=== PATIENT | male | born 1950 | race Caucasian/White ===

== ENCOUNTER → 2016-05-13 | Outpatient (CLI) | payer OTHER | LOC: M SMT 10:33 | PROVIDERS: ATTEND Nurse Practitioner Women's Health | DX: Z12.5 Encounter for screening for malignant neoplasm of prostate (principal) | CPT/HCPCS: 36415; G0103 ==

== ENCOUNTER 2016-12-24 08:28 | Outpatient (CLI) | payer MEDICARE, OTHER ==
[~2016-12-24] VITALS: Ht 172.7 cm; Wt 81.6 kg
[~2016-12-24 08:28] MED LIST: ATOR80TA59 PO; GABA-282 PO; JANU100T PO; JARD1TAB3 PO; LOSA100T36 PO; METF10004 PO; PRIM250T8 PO; PROP1TAB29 PO; VITA1CAP40 PO
[2016-12-24] MEDS ORDERED: NS 1,000 ML IV SCH (10:00)
[2016-12-24] MEDS ORDERED: LIDOCAINE 2% INJ 100 MG/5 ML SDV (FOR ANES.) As Ordered ONE (10:05)
[2016-12-24] MEDS ORDERED: PROPOFOL 200 MG/20 ML VIAL As Ordered ONE (10:05)
--- NOTE | 2016-12-24 10:45 | ROOR ---
Patient Name: Rishi Salas Procedure Date: 12/24/2016 10:21 AM Date of : 1950 Age: 66 Room: [facility] Gender: Male Note Status: Finalized Procedure: Colonoscopy Indications: High risk colon cancer surveillance: Personal history of colonic polyps, Last colonoscopy: October 2013 Providers: Melo GOMEZ MD Referring MD: STEPHANIE BROWN MD Requesting Provider: Medicines: Monitored Anesthesia Care Complications: No immediate complications. Procedure: Pre-Anesthesia Assessment: - The heart rate, respiratory rate, oxygen saturations, blood pressure, adequacy of pulmonary ventilation, and response to care were monitored throughout the procedure. The Colonoscope was introduced through the anus and advanced to the cecum, identified by appendiceal orifice and ileocecal valve. The colonoscopy was performed without difficulty. The patient tolerated the procedure well. The quality of the bowel preparation was good. Findings: The perianal and digital rectal examinations were normal. Three sessile polyps were found in the proximal ascending colon and cecum. The polyps were 4 to 5 mm in size. These polyps were removed with a cold snare. Resection and retrieval were complete. A 5 mm polyp was found in the splenic flexure. The polyp was sessile. The polyp was removed with a cold snare. Resection and retrieval were complete. One 8 mm mucosal polypoid nodularity was found in the distal rectum/anal verge. This is unchanged from previous exam and represents fibrotic tissue (previously biopsied) Impression: - Three 4 to 5 mm polyps in the proximal ascending colon and in the cecum, removed with a cold snare. Resected and retrieved. - One 5 mm polyp at the splenic flexure, removed with a cold snare. Resected and retrieved. - Mild sigmoid diverticulosis. - Mucosal 8 mm polypoid nodule in the distal rectum/anal verge. This is unchanged from previous exam and represents fibrotic tissue (previously biopsied) Recommendation: - Telephone endoscopist for pathology results in 2 weeks. - Repeat colonoscopy in 3 years for surveillance. Melo Gomez MD Melo GOMEZ MD 12/24/2016 10:44:32 AM This report has been signed electronically. Number of Addenda: 0 Note Initiated On: 12/24/2016 10:21 AM Estimated Blood Loss: Estimated blood loss: none.
[2016-12-24 11:12] VITALS: BP 138/88
== END 2016-12-24 11:14 | disposition home or self-care (01) ==
LOC: M OPP 08:28
PROVIDERS: ATTEND Internal Medicine Gastroenterology
DX: Z12.11 Encounter for screening for malignant neoplasm of colon (principal); D12.2 Benign neoplasm of ascending colon; D12.0 Benign neoplasm of cecum; D12.3 Benign neoplasm of transverse colon; K62.89 Other specified diseases of anus and rectum; Z86.010 Personal history of colon polyps; I10 Essential (primary) hypertension; E78.5 Hyperlipidemia, unspecified; E11.9 Type 2 diabetes mellitus without complications; R25.1 Tremor, unspecified; R41.2 Retrograde amnesia

== ENCOUNTER 2017-09-25 08:29 | Emergency (ER) | payer MEDICARE, OTHER | END 2017-09-25 09:35 | disposition home or self-care (01) | LOC: M ED 08:29 | DX: R21 Rash and other nonspecific skin eruption (principal); T50.905A Adverse effect of unspecified drugs, medicaments and biological substances, initial encounter; I10 Essential (primary) hypertension; E78.00 Pure hypercholesterolemia, unspecified; E11.9 Type 2 diabetes mellitus without complications; Z79.899 Other long term (current) drug therapy; Z79.84 Long term (current) use of oral hypoglycemic drugs | CPT/HCPCS: 99282 ==

== ENCOUNTER 2017-11-22 11:08 | Emergency (ER) | payer MEDICARE, OTHER ==
[2017-11-22 12:47] LABS: BASO # 0.1 10^3/uL (0.0-0.2); BASO % 0.5 % (0.0-1.0); EOS # 0.2 10^3/uL (0.0-0.50); EOS % 1.5 % (0.0-3.0); HEMOGLOBIN 15.7 g/dl (13.5-17.5); IMMATURE GRANULOCYTE % 0.4 % (0-3.0); LYMPH # 1.1 10^3/uL (1.5-4.5); LYMPH % 10.3 % (24.0-44.0); MEAN CORPUSCULAR HEMOGLOBIN 29.3 pg (27.0-33.0); MEAN CORPUSCULAR HGB CONC 32.7 g/dl (32.0-36.5); MEAN CORPUSCULAR VOLUME 89.7 fl (80.0-96.0); MONO # 0.6 10^3/uL (0.0-0.8); MONO % 5.5 % (0.0-5.0); NEUTROPHILS # 8.9 10^3/uL (1.8-7.7); NEUTROPHILS % 81.8 % (36.0-66.0); PLATELET COUNT, AUTOMATED 225 10^3/uL (150-450); RED BLOOD COUNT 5.35 10^6/uL (4.30-6.10); RED CELL DISTRIBUTION WIDTH 13.2 % (11.5-14.5); WHITE BLOOD COUNT 10.9 10^3/uL (4.0-10.0)
[2017-11-22 13:07] LABS: ALBUMIN 2.8 GM/DL (3.2-5.2); ALBUMIN/GLOBULIN RATIO 0.62 (1.00-1.93); ALKALINE PHOSPHATASE 104 U/L (45-117); ALT/SGPT 12 U/L (12-78); ANION GAP 10 MEQ/L (8-16); AST/SGOT 13 U/L (7-37); BILIRUBIN,DIRECT 0.2 MG/DL (0.0-0.2); BILIRUBIN,TOTAL 0.5 MG/DL (0.2-1.0); BLOOD UREA NITROGEN 19 MG/DL (7-18); CALCIUM LEVEL 8.5 MG/DL (8.8-10.2); CARBON DIOXIDE LEVEL 26 MEQ/L (21-32); CHLORIDE LEVEL 97 MEQ/L (98-107); CPK CREATINE PHOSPHOKINASE 20 U/L (39-308); CREATININE FOR GFR 0.95 MG/DL (0.70-1.30); GLOMERULAR FILTRATION RATE > 60.0 (>49); GLUCOSE, FASTING 273 MG/DL (70-100); POTASSIUM SERUM 5.1 MEQ/L (3.5-5.1); SODIUM LEVEL 133 MEQ/L (136-145); TOTAL PROTEIN 7.3 GM/DL (6.4-8.2); TROPONIN I < 0.02 NG/ML (< 0.10); VALPROIC ACID (DEPAKOTE) < 3.0 UG/ML (50.0-100.0)
[2017-11-22] MEDS: NS 500 ML IV (13:20)
[2017-11-22 13:21] LABS: CK-MB VALUE MASS < 1.0 NG/ML (<3.6)
[2017-11-22 13:35] LABS: INR 1.19; PROTHROMBIN TIME 15.3 SECONDS (12.1-14.4)
[2017-11-22] MEDS: MECLIZINE 25 MG TABLET PO (15:25)
[2017-11-26 13:05] LABS: BEDSIDE GLUCOSE 309 MG/DL (80-115)
== END 2017-11-22 16:48 | disposition home or self-care (01) ==
LOC: M ED 11:08
DX: R55 Syncope and collapse (principal); I49.3 Ventricular premature depolarization; G91.2 (Idiopathic) normal pressure hydrocephalus; E11.9 Type 2 diabetes mellitus without complications; G30.9 Alzheimer's disease, unspecified; F02.80 Dementia in other diseases classified elsewhere, unspecified severity, without behavioral disturbance, psychotic disturbance, mood disturbance, and anxiety; G20 Parkinson's disease; Z88.8 Allergy status to other drugs, medicaments and biological substances; Z79.899 Other long term (current) drug therapy; Z79.84 Long term (current) use of oral hypoglycemic drugs
CPT/HCPCS: 71045

== ENCOUNTER 2017-12-28 10:25 | Emergency (ER) | payer MEDICARE, OTHER ==
[2017-12-28 11:10] LABS: BASO % 0.4 % (0.0-1.0); EOS # 0.2 10^3/uL (0.0-0.50); EOS % 2.4 % (0.0-3.0); HEMATOCRIT 44.6 % (42.0-52.0); HEMOGLOBIN 14.2 g/dl (13.5-17.5); IMMATURE GRANULOCYTE % 0.3 % (0-3.0); LYMPH # 1.5 10^3/uL (1.5-4.5); LYMPH % 22.2 % (24.0-44.0); MEAN CORPUSCULAR HEMOGLOBIN 28.5 pg (27.0-33.0); MEAN CORPUSCULAR HGB CONC 31.8 g/dl (32.0-36.5); MEAN CORPUSCULAR VOLUME 89.4 fl (80.0-96.0); MONO # 0.5 10^3/uL (0.0-0.8); NEUTROPHILS # 4.5 10^3/uL (1.8-7.7); NEUTROPHILS % 66.7 % (36.0-66.0); PLATELET COUNT, AUTOMATED 177 10^3/uL (150-450); RED BLOOD COUNT 4.99 10^6/uL (4.30-6.10); RED CELL DISTRIBUTION WIDTH 13.4 % (11.5-14.5); WHITE BLOOD COUNT 6.8 10^3/uL (4.0-10.0)
[2017-12-28 11:23] LABS: KETONE, URINE AUTO RFX NEGATIVE (NEGATIVE); LEUKOCYTE ESTERASE UR AUTO RFX NEGATIVE (NEGATIVE); NITRITE, URINE AUTO RFX NEGATIVE (NEGATIVE); RBC, URINE AUTO RFX 0 /HPF (0-3); SPECIFIC GRAVITY UR AUTO RFX 1.008 (1.002-1.035); SQUAM EPITHELIAL CELL UR AURFX 0 /HPF (0-6); WBC, URINE AUTO RFX 0 /HPF (0-3)
[2017-12-28 11:47] LABS: AMMONIA < 10 uMOL/L (<32)
[2017-12-28 11:50] LABS: ALBUMIN 3.5 GM/DL (3.2-5.2); ALKALINE PHOSPHATASE 88 U/L (45-117); ALT/SGPT 24 U/L (12-78); ANION GAP 7 MEQ/L (8-16); AST/SGOT 20 U/L (7-37); BILIRUBIN,DIRECT 0.1 MG/DL (0.0-0.2); BILIRUBIN,TOTAL 0.3 MG/DL (0.2-1.0); BLOOD UREA NITROGEN 13 MG/DL (7-18); CALCIUM LEVEL 9.1 MG/DL (8.8-10.2); CARBON DIOXIDE LEVEL 27 MEQ/L (21-32); CHLORIDE LEVEL 108 MEQ/L (98-107); CK-MB VALUE MASS < 1.0 NG/ML (<3.6); CPK CREATINE PHOSPHOKINASE 40 U/L (39-308); CREATININE FOR GFR 0.74 MG/DL (0.70-1.30); ETHYL ALCOHOL (ETHANOL) < 0.003 % (0.000-0.010); GLOMERULAR FILTRATION RATE > 60.0 (>49); GLUCOSE, FASTING 226 MG/DL (70-100); POTASSIUM SERUM 4.4 MEQ/L (3.5-5.1); SODIUM LEVEL 142 MEQ/L (136-145); THYROID STIMULATING HORMONE 0.513 uIU/ML (0.358-3.740); TROPONIN I < 0.02 NG/ML (< 0.10)
[2017-12-28 11:59] LABS: AMPHETAMINES LEVEL URINE NEGATIVE (NEGATIVE); BARBITURATES URINE POSITIVE (NEGATIVE); BENZODIAZEPINES URINE NEGATIVE (NEGATIVE); CANNABINOIDS URINE NEGATIVE (NEGATIVE); COCAINE METABOLITE URINE NEGATIVE (NEGATIVE); METHADONE URINE NEGATIVE (NEGATIVE); OPIATES URINE NEGATIVE (NEGATIVE); PHENCYCLIDINE URINE NEGATIVE (NEGATIVE)
== END 2017-12-28 14:06 | disposition home or self-care (01) ==
LOC: M ED 10:25
DX: G25.9 Extrapyramidal and movement disorder, unspecified (principal); R32 Unspecified urinary incontinence; E11.9 Type 2 diabetes mellitus without complications; G20 Parkinson's disease; Z79.899 Other long term (current) drug therapy
CPT/HCPCS: 71046

== ENCOUNTER → 2018-03-04 | Outpatient (CLI) | payer MEDICARE, OTHER ==
[~2018-03-04] MED LIST changes: +ARIC1TAB2 PO; +CERETAB PO; +CLAR1TAB2 PO; +DEPA1TAB3 PO; -GABA-282 PO; +GABA-843 PO; +HYDR1CRE2 TOP; +JANU100T14 PO; +LIPI80TA PO; +LOSA-4 PO; -LOSA100T36 PO; +MECL1CHW2 PO; +PRED20TA PO; -PROP1TAB29 PO; +PROP20TA72 PO; -VITA1CAP40 PO; +VITA50005 PO
--- NOTE | 2018-03-04 09:42 | REP ---
MR Brain without contrast HISTORY: Amnesia COMPARISON : CT 12/28/2017 and MR 07/23/2010 Areas of increased signal intensity on T2-weighted images are present in the periventricular and subcortical white matter and katerine. This represents small-vessel ischemic disease. There is no intraparenchymal hemorrhage, infarct, mass or midline shift. The ventricular system and cortical sulci are dilated consistent with mild volume loss. There is no extra cerebral collection. The sinuses are clear. IMPRESSION: 1. Small vessel ischemic disease. 2. Mild volume loss. Electronically Signed by Carlo Rob MD 03/04/2018 09:30 A
== END ==
LOC: M PLARAD 07:38
PROVIDERS: ATTEND Internal Medicine
DX: R41.3 Other amnesia (principal)

== ENCOUNTER 2019-09-27 12:06 | Emergency (ER) | payer MEDICARE, OTHER ==
[~2019-09-27] VITALS: Ht 170.2 cm; Wt 89.1 kg
[~2019-09-27 12:06] MED LIST changes: -LOSA-4 PO; +LOSA100T50 PO; +LOSA50TA88 PO; +MECL1CHW PO; -MECL1CHW2 PO
[2019-09-27 12:48] LABS: BASO % 0.4 % (0.0-1.0); EOS # 0.1 10^3/uL (0.0-0.5); EOS % 1.7 % (0.0-3.0); HEMATOCRIT 46.8 % (42.0-52.0); HEMOGLOBIN 15.9 g/dl (13.5-17.5); LYMPH # 1.3 10^3/uL (1.5-5.0); LYMPH % 18.2 % (24.0-44.0); MEAN CORPUSCULAR HEMOGLOBIN 30.2 pg (27.0-33.0); MONO # 0.6 10^3/uL (0.0-0.8); MONO % 7.9 % (0.0-5.0); NEUTROPHILS % 71.5 % (36.0-66.0); PLATELET COUNT, AUTOMATED 152 10^3/uL (150-450); RED BLOOD COUNT 5.26 10^6/uL (4.30-6.10)
[2019-09-27 13:20] LABS: ALBUMIN 3.8 GM/DL (3.2-5.2); ALT/SGPT 25 U/L (12-78); BILIRUBIN,DIRECT 0.2 MG/DL (0.0-0.2); BILIRUBIN,TOTAL 0.7 MG/DL (0.2-1.0); BLOOD UREA NITROGEN 15 MG/DL (7-18); CALCIUM LEVEL 9.1 MG/DL (8.8-10.2); CARBON DIOXIDE LEVEL 23 MEQ/L (21-32); CHLORIDE LEVEL 105 MEQ/L (98-107); CREATININE FOR GFR 0.94 MG/DL (0.70-1.30); GLOMERULAR FILTRATION RATE > 60.0 (>49); GLUCOSE, FASTING 342 MG/DL (70-100); POTASSIUM SERUM 4.6 MEQ/L (3.5-5.1); SODIUM LEVEL 137 MEQ/L (136-145); THYROID STIMULATING HORMONE 0.404 uIU/ML (0.358-3.740)
--- NOTE | 2019-09-27 14:57 | REP ---
CT brain: 09/27/2019. Indication: Stroke. Technique: Unenhanced axial CT images of the brain were obtained from skull base to vertex with coronal reconstructions provided. Comparison: MRI brain dated 03/04/2018. Findings: There is no acute intracranial hemorrhage, acute cortical infarction, mass effect or hydrocephalous. No significant fluid is present within the visualized paranasal sinuses/mastoid air cells. Diffuse volume loss is present. Patchy areas of cerebral hemisphere white matter hypoattenuation are noted most consistent with chronic small vessel disease. There is intracranial atherosclerotic disease. Impression: No acute intracranial process. Electronically Signed by Go Hayden DO 09/27/2019 02:49 P
[2019-09-27 18:47] VITALS: BP 126/77
--- NOTE | 2019-09-28 00:26 | ECGEPIP ---
[facility] - ED Test Date: 2019-09-27 Pat Name: BERNIE UREÑA Department: Room: - Gender: Male Special Effects Specialist: : 1950 Requested By: Amy Quach Order Number: [id number] Reading MD: Melo Murray Measurements Intervals [place] Rate: 96 P: 50 CO: 164 QRS: 37 QRSD: 90 T: 55 QT: 339 QTc: 429 Interpretive Statements SINUS RHYTHM Nonspecific ST-T wave abnormalities Similar to tracing done 11-22-17 Electronically Signed on 09-28-2019 0:26:22 EDT by Melo Murray
[2019-10-02] MEDS ORDERED: JANU50TA8 PO (08:23)
[2019-10-02] MEDS ORDERED: GLIP5TAB8 PO (08:23)
== END 2019-09-27 21:34 | disposition home or self-care (01) ==
LOC: M ED 12:06 → EDBD 12:06 → M ED 21:34
DX: E11.65 Type 2 diabetes mellitus with hyperglycemia (principal); R41.3 Other amnesia; I10 Essential (primary) hypertension; Z79.4 Long term (current) use of insulin; Z79.899 Other long term (current) drug therapy; Z88.8 Allergy status to other drugs, medicaments and biological substances

== ENCOUNTER 2021-04-15 10:03 | Emergency (ER) | payer MEDICARE, OTHER ==
[~2021-04-15] VITALS: Ht 170.2 cm; Wt 84.1 kg
[~2021-04-15 10:03] MED LIST changes: +GABA-282 PO; -GABA-843 PO; +GLIP5TAB8 PO; +JANU50TA8 PO; +LOSA100T45 PO; -LOSA100T50 PO; +LOSA50TA28 PO; -LOSA50TA88 PO
[2021-04-15] MEDS ORDERED: ASPI81TA26 (10:25)
[2021-04-15] MEDS ORDERED: LEVE10003 (10:25)
[2021-04-15] MEDS ORDERED: GABA-282 PO (13:31)
[2021-04-15 13:47] VITALS: BP 113/68
== END 2021-04-15 13:50 | disposition home or self-care (01) ==
LOC: M ED 10:03
DX: E11.40 Type 2 diabetes mellitus with diabetic neuropathy, unspecified (principal); G62.9 Polyneuropathy, unspecified; G58.9 Mononeuropathy, unspecified; N40.0 Benign prostatic hyperplasia without lower urinary tract symptoms; I10 Essential (primary) hypertension; E78.5 Hyperlipidemia, unspecified; M54.17 Radiculopathy, lumbosacral region; F03.90 Unspecified dementia, unspecified severity, without behavioral disturbance, psychotic disturbance, mood disturbance, and anxiety; E85.89 Other amyloidosis; Z79.899 Other long term (current) drug therapy; Z79.82 Long term (current) use of aspirin; Z88.8 Allergy status to other drugs, medicaments and biological substances

== ENCOUNTER 2021-10-14 08:36 | Emergency (ER) | payer MEDICARE, OTHER ==
[~2021-10-14] VITALS: Ht 170.2 cm; Wt 81.9 kg
[~2021-10-14 08:36] MED LIST changes: +ASPI81TA26; +LEVE10003
[2021-10-14 10:44] VITALS: BP 136/82
== END 2021-10-14 10:46 | disposition home or self-care (01) ==
LOC: M ED 08:36
DX: S00.03XA Contusion of scalp, initial encounter (principal); W10.9XXA Fall (on) (from) unspecified stairs and steps, initial encounter; Y92.099 Unspecified place in other non-institutional residence as the place of occurrence of the external cause; Z79.899 Other long term (current) drug therapy; Z79.82 Long term (current) use of aspirin; Z88.8 Allergy status to other drugs, medicaments and biological substances

== ENCOUNTER 2022-10-19 08:56 | Emergency (ER) | payer MEDICARE, OTHER ==
[~2022-10-19] VITALS: Ht 170.2 cm; Wt 83.5 kg
[~2022-10-19 08:56] MED LIST changes: -LOSA100T45 PO; +LOSA100T46 PO
[2022-10-19] MEDS ORDERED: NYSTATIN 100,000 UNITS/GM TOPICAL PWD 15GM TOP STA (11:38)
[2022-10-19 12:40] LABS: APPEARANCE, URINE CLEAR (CLEAR); BACTERIA, URINE AUTO NEGATIVE (NEGATIVE); BILIRUBIN, URINE AUTO NEGATIVE (NEGATIVE); BLOOD, URINE BLOOD NEGATIVE (NEGATIVE); COLOR, URINE YELLOW (YELLOW); GLUCOSE, URINE (UA) AUTO 3+ mg/dL (NEGATIVE); KETONE, URINE AUTO TRACE mg/dL (NEGATIVE); LEUKOCYTE ESTERASE, URINE AUTO NEGATIVE (NEGATIVE); MUCUS, URINE SMALL (NEGATIVE); NITRITE, URINE AUTO NEGATIVE (NEGATIVE); PROTEIN, URINE AUTO NEGATIVE (NEGATIVE); RBC, URINE AUTO 1 /HPF (0-3); SPECIFIC GRAVITY URINE AUTO 1.032 (1.002-1.035); SQUAMOUS EPITHELIAL CELL UR AU 0 /HPF (0-6); UROBILINOGEN, URINE AUTO 0.2 mg/dL (0.0-2.0); WBC, URINE AUTO 1 /HPF (0-3)
[2022-10-19 13:05] VITALS: BP 118/73; TEMP 98.1; O2SAT 96
[2022-10-19] MEDS ORDERED: NYST1POW9 TOP (13:13)
== END 2022-10-19 13:21 | disposition home or self-care (01) ==
LOC: M ED 08:56
DX: B37.42 Candidal balanitis (principal); E11.9 Type 2 diabetes mellitus without complications; I10 Essential (primary) hypertension; F03.90 Unspecified dementia, unspecified severity, without behavioral disturbance, psychotic disturbance, mood disturbance, and anxiety; R56.9 Unspecified convulsions; E78.5 Hyperlipidemia, unspecified; N40.0 Benign prostatic hyperplasia without lower urinary tract symptoms; Z86.73 Personal history of transient ischemic attack (TIA), and cerebral infarction without residual deficits; Z79.82 Long term (current) use of aspirin; Z79.899 Other long term (current) drug therapy; Z88.8 Allergy status to other drugs, medicaments and biological substances

== ENCOUNTER → 2023-06-14 | Outpatient (REF) | payer MEDICARE, OTHER ==
[~2023-06-14] MED LIST changes: +GLIP5TAB17 PO; -GLIP5TAB8 PO; +NYST1POW9 TOP
== END ==
LOC: M SFHCDERM 08:33
PROVIDERS: ATTEND Physician Assistant
DX: L30.4 Erythema intertrigo (principal)

== ENCOUNTER → 2023-07-12 | Outpatient (REF) | payer MEDICARE, OTHER | LOC: M SFHCDERM 17:56 | PROVIDERS: ATTEND Physician Assistant | DX: L85.9 Epidermal thickening, unspecified (principal) ==

== ENCOUNTER → 2023-09-08 | Outpatient (REF) | payer MEDICARE, OTHER | LOC: M SFHCDERM 17:13 | PROVIDERS: ATTEND Physician Assistant | DX: B35.6 Tinea cruris (principal) ==

== ENCOUNTER 2023-09-29 10:43 | Inpatient (IN) | payer MEDICARE, OTHER ==
[~2023-09-29] VITALS: Ht 170.2 cm; Wt 66.7 kg
[~2023-09-29 10:43] MED LIST changes: -ASPI81TA26; +ASPI81TA26 PO; -LEVE10003; +LEVE10003 PO
[2023-09-29] MEDS: NS 1,000 ML IV SCH (11:31)
[2023-09-29 11:41] LABS: VENOUS BASE EXCESS -3.1 (-2.0-2.0); VENOUS HCO3 21.7 MMOL/L (23.0-27.0); VENOUS O2 SATURATION 95.5 % (60.0-80.0); VENOUS PARTIAL PRESSURE CO2 38.2 mmHg (38.0-50.0); VENOUS PARTIAL PRESSURE O2 85.7 mmHg (30.0-50.0); VENOUS PH 7.372 UNITS (7.330-7.430); VENOUS STANDARD HCO3 21.9 MMOL/L; VENOUS TOTAL CO2 22.9 MMOL/L (24.0-28.0)
[2023-09-29 11:48] LABS: BASO % 0.3 % (0.0-1.0); EOS # 0.1 10^3/uL (0.0-0.5); EOS % 1.2 % (0.0-3.0); HEMATOCRIT 41.7 % (42.0-52.0); HEMOGLOBIN 14.3 g/dl (13.5-17.5); LYMPH # 0.7 10^3/uL (1.5-5.0); LYMPH % 7.4 % (24.0-44.0); MEAN CORPUSCULAR HEMOGLOBIN 30.4 pg (27.0-33.0); MEAN CORPUSCULAR HGB CONC 34.3 g/dl (32.0-36.5); MEAN CORPUSCULAR VOLUME 88.5 fl (80.0-96.0); MONO # 1.5 10^3/uL (0.0-0.8); MONO % 15.5 % (2.0-8.0); NEUTROPHILS # 7.4 10^3/uL (1.5-8.5); NEUTROPHILS % 75.2 % (36.0-66.0); PLATELET COUNT, AUTOMATED 115 10^3/uL (150-450); RED BLOOD COUNT 4.71 10^6/uL (4.30-6.10); WHITE BLOOD COUNT 9.8 10^3/uL (4.0-10.0)
[2023-09-29 12:16] LABS: THYROID STIMULATING HORMONE 0.52 uIU/ML (0.55-4.78)
[2023-09-29 12:18] LABS: ALBUMIN 3.7 G/DL (3.2-5.2); BILIRUBIN,DIRECT 0.6 MG/DL (<0.4); BILIRUBIN,TOTAL 1.8 MG/DL (0.3-1.2); CALCIUM LEVEL 9.1 MG/DL (8.3-10.6); CREATININE FOR GFR 2.83 MG/DL (0.70-1.30); GLOMERULAR FILTRATION RATE 23.6 (>42); MAGNESIUM LEVEL 2.6 MG/DL (1.8-2.4); POTASSIUM SERUM 3.9 MMOL/L (3.5-5.1); TOTAL PROTEIN 6.7 G/DL (5.7-8.2)
[2023-09-29] MEDS: LIDOCAINE 2% 5ML JELLY UROJET TOP ONE (15:10)
[2023-09-29] MEDS ORDERED: HumuLIN R (REGULAR) INSULIN (NovoLIN R) **100U/ML** PER UNIT IV ONE (15:45)
[2023-09-29] MEDS ORDERED: DEXTROSE 50% 50ML SYRINGE IV PRN (16:50)
[2023-09-29] MEDS ORDERED: ACETAMINOPHEN TAB 650MG DOSE (2X325MG) PO PRN (16:50)
[2023-09-29] MEDS ORDERED: GLUCOSE 4 GM CHEW PO PRN (16:50)
[2023-09-29] MEDS ORDERED: GLUCAGON INJ 1MG VIAL SC PRN (16:50)
[2023-09-29] MEDS: HumuLIN R (REGULAR) INSULIN (NovoLIN R) **100U/ML** PER UNIT IV ONE (16:57)
[2023-09-29] MEDS: LR 1,000 ML IV SCH (17:23)
[2023-09-29 17:29] LABS: CHOLESTEROL RISK RATIO 3.26 (<5); HDL CHOLESTEROL 46.5 MG/DL (>40); LDL CHOLESTEROL 85.3 MG/DL (<100); NON-HDL-C 105.5 MG/DL
[2023-09-29 17:32] LABS: FREE T4 1.39 NG/DL (0.89-1.76)
[2023-09-29] MEDS ORDERED: GLIP10TA PO (17:32)
[2023-09-29] MEDS ORDERED: HOME MED LIST COMPLETE! XX SCH (17:35)
[2023-09-29 18:15] VITALS: BP 146/82; TEMP 97.9; O2SAT 97
[2023-09-29] MEDS: INSULIN LISPRO (NovoLOG) PER UNIT SC SCH ×2 (18:39→20:51)
[2023-09-29 18:41] LABS: INR 1.42; PROTHROMBIN TIME 16.9 SECONDS (12.5-14.5)
[2023-09-29 19:40] VITALS: BP 123/78; TEMP 98.1; O2SAT 97
[2023-09-29] MEDS: PROPRANOLOL 20 MG TAB PO SCH (20:50)
[2023-09-29] MEDS: ATORVASTATIN 20 MG TAB PO SCH (20:50)
[2023-09-29] MEDS: SENNA 8.6 MG TAB (SENOKOT) PO SCH (20:50)
[2023-09-29] MEDS: levETIRAcetam 250MG TABLET (KEPPRA) PO SCH (20:51)
[2023-09-29] MEDS: LEVEMIR (INSULIN DETEMIR) 1 UNITS/0.01ML SC SCH (20:51)
[2023-09-29] MEDS: GABAPENTIN 300 MG CAP PO SCH (20:51)
[2023-09-29] MEDS: DOCUSATE SODIUM 100MG CAPSULE PO SCH (20:51)
[2023-09-30] MEDS: HEPARIN SOD (PORCINE) 5000UNITS/ML 1ML VIAL/SYRINGE SQ SCH (05:26)
[2023-09-30 05:38] VITALS: BP 121/68; TEMP 97.9; O2SAT 97
[2023-09-30 06:03] LABS: HEMATOCRIT 38.7 % (42.0-52.0); HEMOGLOBIN 13.4 g/dl (13.5-17.5); MEAN CORPUSCULAR HEMOGLOBIN 30.9 pg (27.0-33.0); MEAN CORPUSCULAR HGB CONC 34.6 g/dl (32.0-36.5); MEAN CORPUSCULAR VOLUME 89.2 fl (80.0-96.0); PLATELET COUNT, AUTOMATED 103 10^3/uL (150-450); RED BLOOD COUNT 4.34 10^6/uL (4.30-6.10); WHITE BLOOD COUNT 8.9 10^3/uL (4.0-10.0)
[2023-09-30 06:31] LABS: ALKALINE PHOSPHATASE 68 U/L (46-116); ALT/SGPT 16 U/L (7.0-40); AST/SGOT 11 U/L (<34); BLOOD UREA NITROGEN 29 MG/DL (9-23); CARBON DIOXIDE LEVEL 30 MMOL/L (20-31); CHLORIDE LEVEL 105 MMOL/L (98-107); CREATININE FOR GFR 0.92 MG/DL (0.70-1.30); GLOMERULAR FILTRATION RATE > 60.0 (>42); GLUCOSE, FASTING 88 MG/DL (74-106); POTASSIUM SERUM 3.2 MMOL/L (3.5-5.1); SODIUM LEVEL 144 MMOL/L (136-145); TOTAL PROTEIN 5.6 G/DL (5.7-8.2)
[2023-09-30] MEDS: ASPIRIN 81MG ENTERIC TABLET PO SCH (08:35)
[2023-09-30] MEDS: TAMSULOSIN 0.4 MG CAP PO SCH (08:35)
[2023-09-30] MEDS: POTASSIUM CHLORIDE 10MEQ SR TABLET PO SCH (08:35)
[2023-09-30] MEDS: LEVEMIR (INSULIN DETEMIR) 1 UNITS/0.01ML SC SCH ×2 (08:36→22:07)
[2023-09-30] MEDS ORDERED: LEVEMIR (INSULIN DETEMIR) 1 UNITS/0.01ML SC SCH (09:00)
[2023-09-30 12:00] VITALS: BP 117/67; TEMP 97.9; O2SAT 98
[2023-09-30] MEDS: MOM 30ML SUSPENSION UDC PO PRN (18:01)
[2023-09-30 19:05] VITALS: BP 116/64; TEMP 98.8; O2SAT 95
[2023-10-01 04:00] VITALS: BP 147/75; TEMP 98.6; O2SAT 98
[2023-10-01 06:32] LABS: HEMATOCRIT 39.2 % (42.0-52.0); HEMOGLOBIN 13.2 g/dl (13.5-17.5); MEAN CORPUSCULAR HEMOGLOBIN 30.6 pg (27.0-33.0); MEAN CORPUSCULAR HGB CONC 33.7 g/dl (32.0-36.5); MEAN CORPUSCULAR VOLUME 90.7 fl (80.0-96.0); PLATELET COUNT, AUTOMATED 101 10^3/uL (150-450); RED BLOOD COUNT 4.32 10^6/uL (4.30-6.10); WHITE BLOOD COUNT 8.5 10^3/uL (4.0-10.0)
[2023-10-01 06:44] LABS: ALBUMIN 2.8 G/DL (3.2-5.2); ALKALINE PHOSPHATASE 67 U/L (46-116); ALT/SGPT 16 U/L (7.0-40); AST/SGOT 13 U/L (<34); BILIRUBIN,TOTAL 0.7 MG/DL (0.3-1.2); BLOOD UREA NITROGEN 21 MG/DL (9-23); CALCIUM LEVEL 8.6 MG/DL (8.3-10.6); CARBON DIOXIDE LEVEL 32 MMOL/L (20-31); CHLORIDE LEVEL 106 MMOL/L (98-107); CREATININE FOR GFR 0.71 MG/DL (0.70-1.30); GLOMERULAR FILTRATION RATE > 60.0 (>42); GLUCOSE, FASTING 82 MG/DL (74-106); POTASSIUM SERUM 3.7 MMOL/L (3.5-5.1); SODIUM LEVEL 143 MMOL/L (136-145); TOTAL PROTEIN 5.4 G/DL (5.7-8.2)
[2023-10-01 08:16] VITALS: BP 151/75
[2023-10-01 12:00] VITALS: BP 101/66; TEMP 97.7; O2SAT 99
[2023-10-01] MEDS ORDERED: INSUDET SC ×2 (15:32)
[2023-10-01] MEDS ORDERED: ACET1TAB55 PO (15:32)
[2023-10-01] MEDS ORDERED: MOM30SS2 PO (15:32)
[2023-10-01] MEDS ORDERED: SENO8.6T5 PO (15:32)
[2023-10-01] MEDS ORDERED: FLOM0.4C39 PO (15:32)
[2023-10-01] MEDS ORDERED: INSUHUMDS SC ×2 (15:32)
[2023-10-01] MEDS ORDERED: COLA100C5 PO (15:32)
== END 2023-10-01 16:00 | DRG 638 ==
LOC: M ED 10:43 → EDBD 10:43 → M ED INP 16:50 → M MSPAV 18:09
PROVIDERS: ADMIT Internal Medicine; ATTEND Internal Medicine
DX: E11.65 Type 2 diabetes mellitus with hyperglycemia (principal); N13.30 Unspecified hydronephrosis; N17.9 Acute kidney failure, unspecified; E87.1 Hypo-osmolality and hyponatremia; E87.6 Hypokalemia; R41.3 Other amnesia; R25.1 Tremor, unspecified; R33.9 Retention of urine, unspecified; E78.5 Hyperlipidemia, unspecified; I10 Essential (primary) hypertension; N40.1 Benign prostatic hyperplasia with lower urinary tract symptoms; G40.909 Epilepsy, unspecified, not intractable, without status epilepticus; R26.89 Other abnormalities of gait and mobility; R29.6 Repeated falls; E11.42 Type 2 diabetes mellitus with diabetic polyneuropathy; K59.00 Constipation, unspecified; Z79.84 Long term (current) use of oral hypoglycemic drugs; Z79.899 Other long term (current) drug therapy; Z88.8 Allergy status to other drugs, medicaments and biological substances

== ENCOUNTER 2023-10-01 12:07 | Inpatient (IN) | payer MEDICARE, OTHER ==
[~2023-10-01] VITALS: Ht 170.2 cm; Wt 70.2 kg
[~2023-10-01 12:07] MED LIST changes: +GLIP10TA PO
[2023-10-01] MEDS ORDERED: SENO8.6T5 PO (15:32)
[2023-10-01] MEDS ORDERED: INSUDET SC ×2 (15:32)
[2023-10-01] MEDS ORDERED: COLA100C5 PO (15:32)
[2023-10-01] MEDS ORDERED: INSUHUMDS SC ×2 (15:32)
[2023-10-01] MEDS ORDERED: MOM30SS2 PO (15:32)
[2023-10-01] MEDS ORDERED: ACET1TAB55 PO (15:32)
[2023-10-01] MEDS ORDERED: FLOM0.4C39 PO (15:32)
[2023-10-01] MEDS ORDERED: MIRALAX *UNIT DOSE* 17GM PACKET PO PRN (15:50)
[2023-10-01] MEDS ORDERED: ONDANSETRON 4MG TAB PO PRN (15:50)
[2023-10-01] MEDS ORDERED: MAALOX 30 ML SUSP *UDC PO PRN (15:50)
[2023-10-01] MEDS ORDERED: MOM 30ML SUSPENSION UDC PO PRN (15:50)
[2023-10-01 16:05] VITALS: BP 119/60; TEMP 97.3; O2SAT 94
[2023-10-01] MEDS ORDERED: GLUCAGON INJ 1MG VIAL SC PRN (16:25)
[2023-10-01] MEDS ORDERED: GLUCOSE 4 GM CHEW PO PRN (16:25)
[2023-10-01] MEDS ORDERED: DEXTROSE 50% 50ML SYRINGE IV PRN (16:25)
[2023-10-01] MEDS: INSULIN LISPRO (NovoLOG) PER UNIT SC SCH ×2 (17:49→21:00)
[2023-10-01 20:00] VITALS: BP 109/60; TEMP 97.6; O2SAT 99
[2023-10-01] MEDS ORDERED: DOCUSATE SODIUM 100MG CAPSULE PO SCH (21:00)
[2023-10-01] MEDS: PROPRANOLOL 20 MG TAB PO SCH (21:00)
[2023-10-01] MEDS: LEVEMIR (INSULIN DETEMIR) 1 UNITS/0.01ML SC SCH (21:01)
[2023-10-01] MEDS: SENOKOT S TAB PO SCH (21:02)
[2023-10-01] MEDS: GABAPENTIN 300 MG CAP PO SCH (21:02)
[2023-10-01] MEDS: ATORVASTATIN 20 MG TAB PO SCH (21:02)
[2023-10-01] MEDS: levETIRAcetam 250MG TABLET (KEPPRA) PO SCH (21:03)
[2023-10-02 04:00] VITALS: BP 152/71; TEMP 97.4; O2SAT 95
[2023-10-02] MEDS: ANUSOL HC 25MG SUPP PR PRN (05:21)
[2023-10-02 07:03] LABS: BASO % 0.4 % (0.0-1.0); EOS # 0.4 10^3/uL (0.0-0.5); EOS % 5.2 % (0.0-3.0); HEMOGLOBIN 12.8 g/dl (13.5-17.5); MEAN CORPUSCULAR HEMOGLOBIN 30.2 pg (27.0-33.0); MEAN CORPUSCULAR HGB CONC 33.7 g/dl (32.0-36.5); MEAN CORPUSCULAR VOLUME 89.6 fl (80.0-96.0); MONO % 13.1 % (2.0-8.0); NEUTROPHILS % 68.2 % (36.0-66.0); PLATELET COUNT, AUTOMATED 112 10^3/uL (150-450); RED BLOOD COUNT 4.24 10^6/uL (4.30-6.10); WHITE BLOOD COUNT 7.3 10^3/uL (4.0-10.0)
[2023-10-02 07:20] LABS: BLOOD UREA NITROGEN 16 MG/DL (9-23); CALCIUM LEVEL 8.6 MG/DL (8.3-10.6); CARBON DIOXIDE LEVEL 32 MMOL/L (20-31); CHLORIDE LEVEL 104 MMOL/L (98-107); GLOMERULAR FILTRATION RATE > 60.0 (>42); GLUCOSE, FASTING 165 MG/DL (74-106); SODIUM LEVEL 142 MMOL/L (136-145)
[2023-10-02] MEDS: LEVEMIR (INSULIN DETEMIR) 1 UNITS/0.01ML SC SCH (07:29)
[2023-10-02] MEDS: ASPIRIN 81MG ENTERIC TABLET PO SCH (07:30)
[2023-10-02] MEDS: TAMSULOSIN 0.4 MG CAP PO SCH (07:30)
[2023-10-02] MEDS: ACETAMINOPHEN TAB 650MG DOSE (2X325MG) PO PRN (07:33)
[2023-10-02 12:00] VITALS: BP 97/52; TEMP 97.6; O2SAT 96
[2023-10-02] MEDS: ENOXAPARIN 40MG/0.4ML SYRINGE (J1650 PER 10MG) SC SCH (12:03)
[2023-10-02 20:00] VITALS: BP 89/54; TEMP 96.8; O2SAT 98
[2023-10-03 04:00] VITALS: BP 134/68; TEMP 96.8; O2SAT 100
[2023-10-03 12:00] VITALS: BP 100/55; TEMP 97.3; O2SAT 98
[2023-10-03 20:00] VITALS: BP 107/59; TEMP 97; O2SAT 69
[2023-10-03 20:30] VITALS: O2SAT 99
[2023-10-04 04:00] VITALS: BP 145/79; TEMP 98.1; O2SAT 98
[2023-10-04] MEDS: MOM 30ML SUSPENSION UDC PO PRN (07:49)
[2023-10-04 12:00] VITALS: BP 101/55; TEMP 97.4; O2SAT 96
[2023-10-04 20:00] VITALS: BP 109/62; TEMP 97.7; O2SAT 98
[2023-10-05 04:00] VITALS: BP 112/64; TEMP 97.5; O2SAT 95
[2023-10-05 12:00] VITALS: BP 92/54; TEMP 98; O2SAT 95
[2023-10-05 20:00] VITALS: BP 121/62; TEMP 97.6; O2SAT 98
[2023-10-06 04:00] VITALS: BP 119/70; TEMP 97.1; O2SAT 98
[2023-10-06 12:00] VITALS: BP 106/56; TEMP 98.3; O2SAT 97
[2023-10-06 22:45] VITALS: BP 112/50; TEMP 97.6; O2SAT 99
[2023-10-07 04:00] VITALS: BP 136/65; TEMP 97.3; O2SAT 98
[2023-10-07 12:00] VITALS: BP 139/66; TEMP 97; O2SAT 97
[2023-10-07 20:00] VITALS: BP 130/65; TEMP 97.5; O2SAT 97
[2023-10-08] MEDS ORDERED: levETIRAcetam 250MG TABLET (KEPPRA) As Ordered ONE (09:18)
[2023-10-08] MEDS ORDERED: GABAPENTIN 300 MG CAP As Ordered ONE (09:18)
[2023-10-08] MEDS ORDERED: INSULIN LISPRO (NovoLOG) PER UNIT As Ordered ONE (09:19)
[2023-10-08] MEDS ORDERED: ENOXAPARIN 40MG/0.4ML SYRINGE (J1650 PER 10MG) As Ordered ONE (09:19)
[2023-10-08] MEDS ORDERED: ASPIRIN 81MG ENTERIC TABLET As Ordered ONE (09:20)
[2023-10-08] MEDS ORDERED: LEVEMIR (INSULIN DETEMIR) 1 UNITS/0.01ML As Ordered ONE (09:20)
[2023-10-08] MEDS ORDERED: TAMSULOSIN 0.4 MG CAP As Ordered ONE (09:20)
[2023-10-08] MEDS ORDERED: MOM 30ML SUSPENSION UDC As Ordered ONE (11:30)
[2023-10-08] MEDS ORDERED: MIRALAX *UNIT DOSE* 17GM PACKET As Ordered ONE (11:30)
[2023-10-08 12:00] VITALS: BP 103/56; TEMP 97; O2SAT 95
[2023-10-08 20:00] VITALS: BP 106/60; TEMP 97.1; O2SAT 98
[2023-10-09 04:00] VITALS: BP 133/60; TEMP 97.8; O2SAT 98
[2023-10-09 12:00] VITALS: BP 126/63; TEMP 98.3; O2SAT 96
[2023-10-09 20:00] VITALS: BP 100/58; TEMP 98; O2SAT 97
[2023-10-10 04:00] VITALS: BP 128/71; TEMP 97.4; O2SAT 97
[2023-10-10 12:00] VITALS: BP 111/60; TEMP 98; O2SAT 98
[2023-10-10 19:39] VITALS: BP 134/70; TEMP 97.4; O2SAT 98
[2023-10-11 03:51] VITALS: BP 122/60; TEMP 98.2; O2SAT 96
[2023-10-11 08:14] VITALS: BP 99/54
[2023-10-11 12:00] VITALS: BP 99/58; TEMP 97.9; O2SAT 97
[2023-10-11 20:00] VITALS: BP 123/57; TEMP 97.7; O2SAT 97
[2023-10-11] MEDS: LEVEMIR (INSULIN DETEMIR) 1 UNITS/0.01ML SC SCH (21:00)
[2023-10-11] MEDS: SITagliptin 50 MG TAB (JANUVIA) PO SCH (21:30)
[2023-10-12 04:00] VITALS: BP 106/60; TEMP 97.8; O2SAT 96
[2023-10-12 06:38] LABS: HEMATOCRIT 37.4 % (42.0-52.0); HEMOGLOBIN 12.2 g/dl (13.5-17.5); MEAN CORPUSCULAR HEMOGLOBIN 30.6 pg (27.0-33.0); MEAN CORPUSCULAR HGB CONC 32.6 g/dl (32.0-36.5); MEAN CORPUSCULAR VOLUME 93.7 fl (80.0-96.0); PLATELET COUNT, AUTOMATED 188 10^3/uL (150-450); RED BLOOD COUNT 3.99 10^6/uL (4.30-6.10); WHITE BLOOD COUNT 6.6 10^3/uL (4.0-10.0)
[2023-10-12 07:08] LABS: BLOOD UREA NITROGEN 15 MG/DL (9-23); CALCIUM LEVEL 8.8 MG/DL (8.3-10.6); CARBON DIOXIDE LEVEL 32 MMOL/L (20-31); CHLORIDE LEVEL 103 MMOL/L (98-107); CREATININE FOR GFR 0.73 MG/DL (0.70-1.30); GLOMERULAR FILTRATION RATE > 60.0 (>42); GLUCOSE, FASTING 194 MG/DL (74-106); POTASSIUM SERUM 4.7 MMOL/L (3.5-5.1); SODIUM LEVEL 139 MMOL/L (136-145)
[2023-10-12 07:10] LABS: VITAMIN B12 LEVEL 440 PG/ML (211-911)
[2023-10-12] MEDS: INSULIN LISPRO (NovoLOG) PER UNIT SC SCH ×2 (07:34)
[2023-10-12 12:00] VITALS: BP 88/53; TEMP 97.6; O2SAT 94
[2023-10-12] MEDS: metFORMIN (GLUCOPHAGE) 500MG TAB PO SCH (18:01)
[2023-10-12 20:00] VITALS: BP 101/57; TEMP 97.6; O2SAT 95
[2023-10-12] MEDS: PROPRANOLOL 20 MG TAB PO SCH (20:29)
[2023-10-13 04:00] VITALS: BP 101/60; TEMP 98.2; O2SAT 92
[2023-10-13] MEDS: LEVEMIR (INSULIN DETEMIR) 1 UNITS/0.01ML SC SCH (08:45)
[2023-10-13 08:46] VITALS: BP 106/60
[2023-10-13 12:00] VITALS: BP 106/61; TEMP 98.3; O2SAT 96
[2023-10-13 20:00] VITALS: BP 131/67; TEMP 97.8; O2SAT 97
[2023-10-14 04:00] VITALS: BP 107/57; TEMP 97.5; O2SAT 94
[2023-10-14 12:00] VITALS: BP 109/61; TEMP 98.2; O2SAT 95
[2023-10-14] MEDS: metFORMIN (GLUCOPHAGE) 500MG TAB PO SCH (17:09)
[2023-10-14 20:00] VITALS: BP 110/60; TEMP 98; O2SAT 96
[2023-10-14] MEDS: QUEtiapine FUMARATE 12.5 MG HALF-TAB PO PRN (20:19)
[2023-10-15 04:00] VITALS: BP 115/57; TEMP 97.5; O2SAT 93
[2023-10-15] MEDS: LEVEMIR (INSULIN DETEMIR) 1 UNITS/0.01ML SC SCH (07:38)
[2023-10-15 12:00] VITALS: BP 127/56; TEMP 98.1; O2SAT 96
[2023-10-15 20:00] VITALS: BP 120/76; TEMP 98.4; O2SAT 95
[2023-10-16 04:00] VITALS: BP 113/70; TEMP 98.2; O2SAT 98
[2023-10-16 12:00] VITALS: BP 140/83; TEMP 98; O2SAT 94
[2023-10-16 20:00] VITALS: BP 124/73; TEMP 98.2; O2SAT 93
[2023-10-17 04:00] VITALS: BP 115/66; TEMP 97.9; O2SAT 94
[2023-10-17 12:00] VITALS: BP 106/59; TEMP 98.6; O2SAT 93
[2023-10-17 22:00] VITALS: BP 109/68; TEMP 97.3; O2SAT 95
[2023-10-18 04:45] VITALS: BP 132/72; TEMP 97.8; O2SAT 95
[2023-10-18 12:00] VITALS: BP 116/70; TEMP 98.2; O2SAT 96
[2023-10-18 20:00] VITALS: BP 120/67; TEMP 97.2; O2SAT 83; O2SAT 97
[2023-10-19 04:00] VITALS: BP 114/67; TEMP 97.8; O2SAT 96
[2023-10-19 12:00] VITALS: BP 116/61; TEMP 97.6; O2SAT 96
[2023-10-19] MEDS: TUBERCULIN PPD 5 UNITS/0.1 ML ID ONE (18:09)
[2023-10-19 20:00] VITALS: BP 112/63; TEMP 97.8; O2SAT 95
[2023-10-20 04:00] VITALS: BP 134/70; TEMP 97.9; O2SAT 97
[2023-10-20 14:40] VITALS: BP 112/63; TEMP 99.9; O2SAT 98
[2023-10-20 14:56] LABS: HEMATOCRIT 38.8 % (42.0-52.0); MEAN CORPUSCULAR HGB CONC 33.5 g/dl (32.0-36.5); MEAN CORPUSCULAR VOLUME 92.4 fl (80.0-96.0); PLATELET COUNT, AUTOMATED 140 10^3/uL (150-450); WHITE BLOOD COUNT 6.7 10^3/uL (4.0-10.0)
[2023-10-20 15:20] LABS: ALBUMIN 3.5 G/DL (3.2-5.2); ALKALINE PHOSPHATASE 75 U/L (46-116); ALT/SGPT 31 U/L (7.0-40); AST/SGOT 19 U/L (<34); BILIRUBIN,TOTAL 0.6 MG/DL (0.3-1.2); BLOOD UREA NITROGEN 18 MG/DL (9-23); CALCIUM LEVEL 8.9 MG/DL (8.3-10.6); CARBON DIOXIDE LEVEL 26 MMOL/L (20-31); CHLORIDE LEVEL 102 MMOL/L (98-107); CREATININE FOR GFR 0.93 MG/DL (0.70-1.30); GLOMERULAR FILTRATION RATE > 60.0 (>42); GLUCOSE, FASTING 186 MG/DL (74-106); POTASSIUM SERUM 4.4 MMOL/L (3.5-5.1); SODIUM LEVEL 137 MMOL/L (136-145); TOTAL PROTEIN 6.2 G/DL (5.7-8.2)
[2023-10-20 20:00] VITALS: BP 134/76; TEMP 97.8; O2SAT 96
[2023-10-21 04:00] VITALS: BP 115/67; TEMP 97.5; O2SAT 95
[2023-10-21] MEDS: PPD DOCUMENTATION ENTRY MISC XX SCH (10:52)
[2023-10-21 14:48] VITALS: BP 110/61; TEMP 99.2; O2SAT 98
[2023-10-21] MEDS: LOPERAMIDE 2 MG CAPLET PO PRN (16:41)
[2023-10-21 20:00] VITALS: BP 110/57; TEMP 98.5; O2SAT 98
[2023-10-22 04:00] VITALS: BP 125/73; TEMP 98.2; O2SAT 97
[2023-10-22] MEDS: DONEPEZIL 5 MG TAB PO SCH (08:17)
[2023-10-22] MEDS ORDERED: GABA-282 PO (09:28)
[2023-10-22] MEDS ORDERED: LEVE10003 PO (09:28)
[2023-10-22] MEDS ORDERED: LIPI80TA PO (09:28)
[2023-10-22] MEDS ORDERED: FLOM0.4C39 PO (09:28)
[2023-10-22] MEDS ORDERED: ASPI81TA26 PO (09:28)
[2023-10-22] MEDS ORDERED: METF500T13 PO (09:28)
[2023-10-22] MEDS ORDERED: ARIC1TAB PO (09:28)
[2023-10-27 17:43] LABS: VITAMIN E(ALPHA TOCOPHEROL) 9.3 mg/L (5.7-19.9); VITAMIN E(GAMMA TOCOPHEROL) 1.3 mg/L (<=4.3)
== END 2023-10-22 10:30 | DRG 638 ==
LOC: M PM&R 16:05
PROVIDERS: ADMIT Physical Medicine & Rehabilitation; ATTEND Student in an Organized Health Care Education/Training Program
DX: E11.65 Type 2 diabetes mellitus with hyperglycemia (principal); N13.30 Unspecified hydronephrosis; N17.9 Acute kidney failure, unspecified; E11.42 Type 2 diabetes mellitus with diabetic polyneuropathy; G20.C Parkinsonism, unspecified; R29.6 Repeated falls; I10 Essential (primary) hypertension; R44.1 Visual hallucinations; N40.1 Benign prostatic hyperplasia with lower urinary tract symptoms; E78.5 Hyperlipidemia, unspecified; N39.490 Overflow incontinence; G40.909 Epilepsy, unspecified, not intractable, without status epilepticus; Z74.1 Need for assistance with personal care; Z74.09 Other reduced mobility; R26.89 Other abnormalities of gait and mobility; K64.9 Unspecified hemorrhoids; K59.00 Constipation, unspecified; R33.9 Retention of urine, unspecified; Z79.82 Long term (current) use of aspirin; Z79.84 Long term (current) use of oral hypoglycemic drugs; Z79.4 Long term (current) use of insulin; Z79.899 Other long term (current) drug therapy; Z88.8 Allergy status to other drugs, medicaments and biological substances

== ENCOUNTER 2023-10-25 14:07 | Inpatient (IN) | payer MEDICARE, OTHER ==
[~2023-10-25] VITALS: Ht 170.2 cm; Wt 67.8 kg
[~2023-10-25 14:07] MED LIST changes: +ACET1TAB55 PO; +ARIC1TAB PO; +COLA100C5 PO; +FLOM0.4C39 PO; +INSUDET SC; +INSUHUMDS SC; +METF500T13 PO; +MOM30SS2 PO; +SENO8.6T5 PO
[2023-10-25 15:21] LABS: BASO % 0.2 % (0.0-1.0); HEMATOCRIT 37.4 % (42.0-52.0); HEMOGLOBIN 12.5 g/dl (13.5-17.5); LYMPH # 0.6 10^3/uL (1.5-5.0); LYMPH % 5.3 % (24.0-44.0); MEAN CORPUSCULAR HEMOGLOBIN 30.8 pg (27.0-33.0); MEAN CORPUSCULAR HGB CONC 33.4 g/dl (32.0-36.5); MEAN CORPUSCULAR VOLUME 92.1 fl (80.0-96.0); MONO # 1.6 10^3/uL (0.0-0.8); NEUTROPHILS # 8.6 10^3/uL (1.5-8.5); NEUTROPHILS % 79.1 % (36.0-66.0); PLATELET COUNT, AUTOMATED 148 10^3/uL (150-450); RED BLOOD COUNT 4.06 10^6/uL (4.30-6.10); WHITE BLOOD COUNT 10.9 10^3/uL (4.0-10.0)
[2023-10-25 15:35] LABS: INR 1.41; PROTHROMBIN TIME 16.8 SECONDS (12.5-14.5)
[2023-10-25 15:50] LABS: AMYLASE 38 U/L (30-118)
[2023-10-25 15:51] LABS: ALBUMIN 3.1 G/DL (3.2-5.2); ALKALINE PHOSPHATASE 57 U/L (46-116); ALT/SGPT 15 U/L (7.0-40); AST/SGOT 19 U/L (<34); BILIRUBIN,DIRECT 0.2 MG/DL (<0.4); BILIRUBIN,TOTAL 0.6 MG/DL (0.3-1.2); BLOOD UREA NITROGEN 21 MG/DL (9-23); CALCIUM LEVEL 8.6 MG/DL (8.3-10.6); CARBON DIOXIDE LEVEL 22 MMOL/L (20-31); CHLORIDE LEVEL 100 MMOL/L (98-107); CREATININE FOR GFR 1.16 MG/DL (0.70-1.30); GLOMERULAR FILTRATION RATE > 60.0 (>42); GLUCOSE, FASTING 339 MG/DL (74-106); SODIUM LEVEL 136 MMOL/L (136-145); TOTAL PROTEIN 6.3 G/DL (5.7-8.2)
[2023-10-25 15:55] LABS: APPEARANCE, URINE MANUAL CLOUDY (CLEAR)
[2023-10-25 15:56] LABS: COLOR, URINE MANUAL RED (YELLOW)
[2023-10-25 15:57] LABS: BILIRUBIN, URINE MANUAL NEGATIVE (NEGATIVE); BLOOD URINE MANUAL POSITIVE (NEGATIVE); GLUCOSE, URINE (UA) MANUAL 4+(1000 MG/DL) mg/dL (NEGATIVE); KETONE, URINE MANUAL 1+ mg/dL (NEGATIVE); LEUKOCYTE ESTERASE, URINE MAN POSITIVE (NEGATIVE); NITRITE, URINE MANUAL NEGATIVE (NEGATIVE); PROTEIN, URINE MANUAL 3+ mg/dL (NEGATIVE); UROBILINOGEN, URINE MANUAL NORMAL (NORMAL)
[2023-10-25 15:58] LABS: PROCALCITONIN 0.52 ng/ml
[2023-10-25 16:01] LABS: RBC, URINE TNTC /hpf (0-3); SQUAMOUS EPITHELIAL CELL URINE NONE SEEN /hpf (SMALL AMT); WBC, URINE TNTC /hpf (0-3)
[2023-10-25 16:15] LABS: BACTERIA, URINE SMALL AMOUNT; HYALINE CAST, URINE NONE SEEN /lpf (0-1); TRIPLE PHOSPHATE CRYSTAL,URINE SMALL AMOUNT /hpf
[2023-10-25 16:26] LABS: VENOUS BASE EXCESS 1.3 (-2.0-2.0); VENOUS O2 SATURATION 91.1 % (60.0-80.0); VENOUS PARTIAL PRESSURE CO2 41.6 mmHg (38.0-50.0); VENOUS PARTIAL PRESSURE O2 64.1 mmHg (30.0-50.0); VENOUS PH 7.414 UNITS (7.330-7.430); VENOUS STANDARD HCO3 25.5 MMOL/L; VENOUS TOTAL CO2 27.3 MMOL/L (24.0-28.0)
[2023-10-25] MEDS: GASTROGRAFIN SOLUTION 30ML PO SCH (16:52)
[2023-10-25] MEDS ORDERED: ISOVUE-370 76% 100ML VIAL As Ordered ONE (18:08)
[2023-10-25] MEDS: cefTRIAXone SOD 1 GM in D5W MINI-BAG PLUS 50 ML IV ONE (19:43)
[2023-10-25] MEDS ORDERED: ACETAMINOPHEN TAB 650MG DOSE (2X325MG) PO PRN (20:40)
[2023-10-25] MEDS ORDERED: ONDANSETRON 4MG 2ML VIAL IV PRN (20:40)
[2023-10-25] MEDS ORDERED: MOM 30ML SUSPENSION UDC PO PRN (20:40)
[2023-10-25] MEDS ORDERED: GLUCAGON INJ 1MG VIAL SC PRN (20:40)
[2023-10-25] MEDS ORDERED: GLUCOSE 4 GM CHEW PO PRN (20:40)
[2023-10-25] MEDS ORDERED: MAALOX 30 ML SUSP *UDC PO PRN (20:40)
[2023-10-25] MEDS ORDERED: DEXTROSE 50% 50ML SYRINGE IV PRN (20:40)
[2023-10-25] MEDS: NS 1,000 ML IV SCH (20:50)
[2023-10-25] MEDS: DOCUSATE SODIUM 100MG CAPSULE PO SCH (21:00)
[2023-10-25] MEDS: INSULIN LISPRO (NovoLOG) PER UNIT SC SCH (21:00)
[2023-10-25 23:50] VITALS: BP 132/67; TEMP 97.7; O2SAT 95
[2023-10-26] MEDS ORDERED: ASPI-615 PO (03:13)
[2023-10-26] MEDS ORDERED: ATOR80TA59 PO (03:13)
[2023-10-26] MEDS ORDERED: KEPP10002 PO (03:13)
[2023-10-26] MEDS ORDERED: DONE5TAB82 PO (03:13)
[2023-10-26] MEDS ORDERED: FLOM0.4C39 PO (03:13)
[2023-10-26] MEDS ORDERED: METF500T13 PO (03:13)
[2023-10-26] MEDS ORDERED: HOME MED LIST COMPLETE! XX SCH (03:15)
[2023-10-26 04:40] VITALS: BP 124/66; TEMP 97.4; O2SAT 95
[2023-10-26 05:14] VITALS: O2SAT 93
[2023-10-26 06:05] LABS: HEMATOCRIT 34.4 % (42.0-52.0); HEMOGLOBIN 11.6 g/dl (13.5-17.5); MEAN CORPUSCULAR HEMOGLOBIN 30.4 pg (27.0-33.0); MEAN CORPUSCULAR HGB CONC 33.7 g/dl (32.0-36.5); MEAN CORPUSCULAR VOLUME 90.3 fl (80.0-96.0); PLATELET COUNT, AUTOMATED 122 10^3/uL (150-450); RED BLOOD COUNT 3.81 10^6/uL (4.30-6.10); WHITE BLOOD COUNT 8.8 10^3/uL (4.0-10.0)
[2023-10-26 06:44] LABS: ALBUMIN 2.6 G/DL (3.2-5.2); ALKALINE PHOSPHATASE 54 U/L (46-116); ALT/SGPT 13 U/L (7.0-40); AST/SGOT 14 U/L (<34); BILIRUBIN,TOTAL 0.5 MG/DL (0.3-1.2); BLOOD UREA NITROGEN 15 MG/DL (9-23); CALCIUM LEVEL 8.3 MG/DL (8.3-10.6); CARBON DIOXIDE LEVEL 30 MMOL/L (20-31); CHLORIDE LEVEL 104 MMOL/L (98-107); CREATININE FOR GFR 0.65 MG/DL (0.70-1.30); GLOMERULAR FILTRATION RATE > 60.0 (>42); GLUCOSE, FASTING 168 MG/DL (74-106); MAGNESIUM LEVEL 1.3 MG/DL (1.8-2.4); POTASSIUM SERUM 3.6 MMOL/L (3.5-5.1); SODIUM LEVEL 141 MMOL/L (136-145); TOTAL PROTEIN 5.3 G/DL (5.7-8.2)
[2023-10-26] MEDS: INSULIN LISPRO (NovoLOG) PER UNIT SC SCH (08:24)
[2023-10-26] MEDS: MAGNESIUM OXIDE 400MG TAB (MAG-OX) PO SCH (09:51)
[2023-10-26] MEDS: MAG SULF 1GM/100ML (MAG RUN) 1 GM in IV 1 EA IV SCH (09:52)
[2023-10-26] MEDS: levETIRAcetam 250MG TABLET (KEPPRA) PO SCH (09:52)
[2023-10-26] MEDS: DONEPEZIL 5 MG TAB PO SCH (09:52)
[2023-10-26] MEDS: GABAPENTIN 300 MG CAP PO SCH (09:52)
[2023-10-26] MEDS: PREVNAR-20 VACCINE 0.5ML SYRINGE IM.IMMUN ONE (11:10)
[2023-10-26 12:00] VITALS: TEMP 97.7; O2SAT 96
[2023-10-26 20:27] VITALS: BP 120/64; TEMP 97.9; O2SAT 97
[2023-10-26] MEDS: cefTRIAXone SOD 1 GM in D5W MINI-BAG PLUS 50 ML IV SCH (20:41)
[2023-10-26] MEDS: ATORVASTATIN 20 MG TAB PO SCH (20:42)
[2023-10-26] MEDS ORDERED: TAMSULOSIN 0.4 MG CAP PO SCH (21:00)
[2023-10-26 23:58] VITALS: TEMP 98.3
[2023-10-27 02:19] VITALS: O2SAT 91
[2023-10-27 05:08] VITALS: BP 105/62; TEMP 97.5; O2SAT 97
[2023-10-27 06:13] LABS: HEMATOCRIT 33.3 % (42.0-52.0); HEMOGLOBIN 11.1 g/dl (13.5-17.5); MEAN CORPUSCULAR HEMOGLOBIN 30.7 pg (27.0-33.0); MEAN CORPUSCULAR HGB CONC 33.3 g/dl (32.0-36.5); MEAN CORPUSCULAR VOLUME 92.2 fl (80.0-96.0); PLATELET COUNT, AUTOMATED 125 10^3/uL (150-450); RED BLOOD COUNT 3.61 10^6/uL (4.30-6.10); WHITE BLOOD COUNT 7.1 10^3/uL (4.0-10.0)
[2023-10-27 06:44] LABS: ALBUMIN 2.5 G/DL (3.2-5.2); ALKALINE PHOSPHATASE 60 U/L (46-116); ALT/SGPT 17 U/L (7.0-40); AST/SGOT 14 U/L (<34); BILIRUBIN,TOTAL 0.4 MG/DL (0.3-1.2); BLOOD UREA NITROGEN 10 MG/DL (9-23); CALCIUM LEVEL 8.2 MG/DL (8.3-10.6); CARBON DIOXIDE LEVEL 31 MMOL/L (20-31); CHLORIDE LEVEL 105 MMOL/L (98-107); CREATININE FOR GFR 0.58 MG/DL (0.70-1.30); GLOMERULAR FILTRATION RATE > 60.0 (>42); GLUCOSE, FASTING 151 MG/DL (74-106); POTASSIUM SERUM 3.6 MMOL/L (3.5-5.1); SODIUM LEVEL 140 MMOL/L (136-145)
[2023-10-27] MEDS ORDERED: MAGN400T2 PO (07:34)
[2023-10-27] MEDS ORDERED: LEVO1TAB39 PO (07:34)
== END 2023-10-27 12:22 | DRG 690 ==
LOC: M ED 14:07 → M ED INP 20:22 → M MSPAV 23:38
PROVIDERS: ADMIT Family Medicine; ATTEND Internal Medicine
DX: N39.0 Urinary tract infection, site not specified (principal); E11.65 Type 2 diabetes mellitus with hyperglycemia; I10 Essential (primary) hypertension; N40.1 Benign prostatic hyperplasia with lower urinary tract symptoms; G40.909 Epilepsy, unspecified, not intractable, without status epilepticus; E78.5 Hyperlipidemia, unspecified; R31.0 Gross hematuria; R53.1 Weakness; B96.4 Proteus (mirabilis) (morganii) as the cause of diseases classified elsewhere; R33.9 Retention of urine, unspecified; E11.40 Type 2 diabetes mellitus with diabetic neuropathy, unspecified; G31.83 Neurocognitive disorder with Lewy bodies; F02.80 Dementia in other diseases classified elsewhere, unspecified severity, without behavioral disturbance, psychotic disturbance, mood disturbance, and anxiety; Z79.84 Long term (current) use of oral hypoglycemic drugs; Z79.899 Other long term (current) drug therapy; Z88.8 Allergy status to other drugs, medicaments and biological substances; Z79.82 Long term (current) use of aspirin

== ENCOUNTER 2023-10-30 12:07 | Inpatient (IN) | payer MEDICARE, OTHER ==
[~2023-10-30] VITALS: Ht 170.2 cm; Wt 66.3 kg
[~2023-10-30 12:07] MED LIST changes: +ASPI-615 PO; +DONE5TAB82 PO; +KEPP10002 PO; +LEVO1TAB39 PO; +MAGN400T2 PO
[2023-10-30 12:51] LABS: BASO # 0.1 10^3/uL (0.0-0.2); BASO % 0.4 % (0.0-1.0); EOS # 0.2 10^3/uL (0.0-0.5); EOS % 1.7 % (0.0-3.0); HEMATOCRIT 37.1 % (42.0-52.0); HEMOGLOBIN 12.4 g/dl (13.5-17.5); LYMPH # 0.8 10^3/uL (1.5-5.0); LYMPH % 5.6 % (24.0-44.0); MEAN CORPUSCULAR HEMOGLOBIN 30.8 pg (27.0-33.0); MEAN CORPUSCULAR HGB CONC 33.4 g/dl (32.0-36.5); MEAN CORPUSCULAR VOLUME 92.1 fl (80.0-96.0); MONO % 7.4 % (2.0-8.0); NEUTROPHILS # 11.4 10^3/uL (1.5-8.5); NEUTROPHILS % 84.4 % (36.0-66.0); PLATELET COUNT, AUTOMATED 168 10^3/uL (150-450); RED BLOOD COUNT 4.03 10^6/uL (4.30-6.10); WHITE BLOOD COUNT 13.5 10^3/uL (4.0-10.0)
[2023-10-30 13:21] LABS: LIPASE 40 U/L (12-53)
[2023-10-30 13:28] LABS: ALBUMIN 2.9 G/DL (3.2-5.2); ALKALINE PHOSPHATASE 63 U/L (46-116); ALT/SGPT 16 U/L (7.0-40); AST/SGOT 17 U/L (<34); BILIRUBIN,DIRECT 0.2 MG/DL (<0.4); BILIRUBIN,TOTAL 0.6 MG/DL (0.3-1.2); BLOOD UREA NITROGEN 13 MG/DL (9-23); CALCIUM LEVEL 8.8 MG/DL (8.3-10.6); CARBON DIOXIDE LEVEL 31 MMOL/L (20-31); CHLORIDE LEVEL 102 MMOL/L (98-107); CK-MB VALUE MASS 1.4 NG/ML (<3.6); CREATININE FOR GFR 0.86 MG/DL (0.70-1.30); GLOMERULAR FILTRATION RATE > 60.0 (>42); GLUCOSE, FASTING 227 MG/DL (74-106); MAGNESIUM LEVEL 1.4 MG/DL (1.8-2.4); PHOSPHORUS LEVEL 3.4 MG/DL (2.4-5.1); POTASSIUM SERUM 4.2 MMOL/L (3.5-5.1); SODIUM LEVEL 138 MMOL/L (136-145); TOTAL PROTEIN 5.8 G/DL (5.7-8.2)
[2023-10-30 13:31] LABS: THYROID STIMULATING HORMONE 0.975 uIU/ML (0.55-4.78)
[2023-10-30 13:36] LABS: CPK CREATINE PHOSPHOKINASE 43 U/L (46-171); MB/CK RELATIVE INDEX 3.25 (< OR =4)
[2023-10-30] MEDS: MAGNESIUM OXIDE 400MG TAB (MAG-OX) PO ONE (14:41)
[2023-10-30] MEDS ORDERED: MAGN400T2 PO (14:46)
[2023-10-30] MEDS ORDERED: LEVO1TAB39 PO (14:46)
[2023-10-30] MEDS ORDERED: HOME MED LIST COMPLETE! XX SCH (14:50)
[2023-10-30] MEDS ORDERED: GLUCOSE 4 GM CHEW PO PRN (15:25)
[2023-10-30] MEDS ORDERED: DEXTROSE 50% 50ML SYRINGE IV PRN (15:25)
[2023-10-30] MEDS ORDERED: ACETAMINOPHEN TAB 650MG DOSE (2X325MG) PO PRN (15:25)
[2023-10-30] MEDS ORDERED: GLUCAGON INJ 1MG VIAL SC PRN (15:25)
[2023-10-30] MEDS ORDERED: ONDANSETRON 4MG TAB PO PRN (15:45)
[2023-10-30] MEDS: MAG SULF 1GM/100ML (MAG RUN) 1 GM in IV 1 EA IV SCH (16:31)
[2023-10-30] MEDS: NS 1,000 ML IV SCH (16:31)
[2023-10-30] MEDS: GABAPENTIN 300 MG CAP PO SCH (16:35)
[2023-10-30 16:41] LABS: INR 1.25; PROTHROMBIN TIME 15.3 SECONDS (12.5-14.5)
[2023-10-30 18:10] VITALS: BP 150/78; TEMP 97.5; O2SAT 96
[2023-10-30] MEDS: LACTOBACILLUS ACIDOPHILUS CAP (BACID) PO SCH (18:27)
[2023-10-30] MEDS: INSULIN LISPRO (NovoLOG) PER UNIT SC SCH ×2 (18:46→21:00)
[2023-10-30 20:30] VITALS: BP 126/69; TEMP 97.7; O2SAT 98
[2023-10-30] MEDS: TAMSULOSIN 0.4 MG CAP PO SCH (21:17)
[2023-10-30] MEDS: levETIRAcetam 250MG TABLET (KEPPRA) PO SCH (21:17)
[2023-10-30] MEDS: ATORVASTATIN 20 MG TAB PO SCH (21:17)
[2023-10-31 03:18] VITALS: BP 123/67; TEMP 97.7; O2SAT 96
[2023-10-31 06:04] LABS: HEMATOCRIT 32.4 % (42.0-52.0); HEMOGLOBIN 10.9 g/dl (13.5-17.5); MEAN CORPUSCULAR HEMOGLOBIN 30.8 pg (27.0-33.0); MEAN CORPUSCULAR HGB CONC 33.6 g/dl (32.0-36.5); MEAN CORPUSCULAR VOLUME 91.5 fl (80.0-96.0); PLATELET COUNT, AUTOMATED 163 10^3/uL (150-450); RED BLOOD COUNT 3.54 10^6/uL (4.30-6.10); WHITE BLOOD COUNT 7.3 10^3/uL (4.0-10.0)
[2023-10-31 06:57] LABS: ALBUMIN 2.6 G/DL (3.2-5.2); ALKALINE PHOSPHATASE 54 U/L (46-116); ALT/SGPT 13 U/L (7.0-40); AST/SGOT 14 U/L (<34); BILIRUBIN,TOTAL 0.5 MG/DL (0.3-1.2); BLOOD UREA NITROGEN 9 MG/DL (9-23); CALCIUM LEVEL 8.2 MG/DL (8.3-10.6); CARBON DIOXIDE LEVEL 30 MMOL/L (20-31); CHLORIDE LEVEL 107 MMOL/L (98-107); CREATININE FOR GFR 0.62 MG/DL (0.70-1.30); GLOMERULAR FILTRATION RATE > 60.0 (>42); GLUCOSE, FASTING 149 MG/DL (74-106); MAGNESIUM LEVEL 1.7 MG/DL (1.8-2.4); POTASSIUM SERUM 3.6 MMOL/L (3.5-5.1); SODIUM LEVEL 139 MMOL/L (136-145); TOTAL PROTEIN 5.2 G/DL (5.7-8.2)
[2023-10-31] MEDS: ENOXAPARIN 40MG/0.4ML SYRINGE (J1650 PER 10MG) SC SCH (08:13)
[2023-10-31] MEDS: ASPIRIN 81MG ENTERIC TABLET PO SCH (08:14)
[2023-10-31] MEDS: LevoFLOXacin 500 MG TABLET PO SCH (08:14)
[2023-10-31] MEDS: DONEPEZIL 5 MG TAB PO SCH (08:14)
[2023-10-31] MEDS: MAG SULF 1GM/100ML (MAG RUN) 1 GM in IV 1 EA IV SCH (08:27)
[2023-10-31 12:00] VITALS: BP 125/69; TEMP 98.1; O2SAT 96
[2023-10-31 19:37] VITALS: BP 118/68; TEMP 97.9; O2SAT 98
[2023-11-01 04:00] VITALS: BP 126/70; TEMP 97.9; O2SAT 96
[2023-11-01 06:22] LABS: HEMATOCRIT 32.8 % (42.0-52.0); HEMOGLOBIN 10.9 g/dl (13.5-17.5); MEAN CORPUSCULAR HEMOGLOBIN 30.7 pg (27.0-33.0); MEAN CORPUSCULAR HGB CONC 33.2 g/dl (32.0-36.5); MEAN CORPUSCULAR VOLUME 92.4 fl (80.0-96.0); PLATELET COUNT, AUTOMATED 165 10^3/uL (150-450); RED BLOOD COUNT 3.55 10^6/uL (4.30-6.10); WHITE BLOOD COUNT 6.8 10^3/uL (4.0-10.0)
[2023-11-01 06:53] LABS: ALBUMIN 2.7 G/DL (3.2-5.2); ALKALINE PHOSPHATASE 55 U/L (46-116); ALT/SGPT 16 U/L (7.0-40); AST/SGOT 19 U/L (<34); BILIRUBIN,TOTAL 0.5 MG/DL (0.3-1.2); BLOOD UREA NITROGEN 9 MG/DL (9-23); CALCIUM LEVEL 8.2 MG/DL (8.3-10.6); CARBON DIOXIDE LEVEL 31 MMOL/L (20-31); CHLORIDE LEVEL 106 MMOL/L (98-107); CREATININE FOR GFR 0.63 MG/DL (0.70-1.30); GLOMERULAR FILTRATION RATE > 60.0 (>42); GLUCOSE, FASTING 143 MG/DL (74-106); MAGNESIUM LEVEL 1.6 MG/DL (1.8-2.4); POTASSIUM SERUM 3.9 MMOL/L (3.5-5.1); SODIUM LEVEL 139 MMOL/L (136-145); TOTAL PROTEIN 5.2 G/DL (5.7-8.2)
[2023-11-01] MEDS: MAGNESIUM OXIDE 400MG TAB (MAG-OX) PO SCH (08:55)
[2023-11-01] MEDS: MAG SULF 1GM/100ML (MAG RUN) 1 GM in IV 1 EA IV SCH (08:55)
[2023-11-01] MEDS: LEVEMIR (INSULIN DETEMIR) 1 UNITS/0.01ML SC SCH (08:56)
[2023-11-01 12:00] VITALS: BP 124/69; TEMP 97.7; O2SAT 96
[2023-11-01 20:00] VITALS: BP 110/58; TEMP 98.1; O2SAT 97
[2023-11-02 04:00] VITALS: BP 119/66; TEMP 97.5; O2SAT 96
[2023-11-02 06:40] LABS: HEMATOCRIT 33.7 % (42.0-52.0); MEAN CORPUSCULAR HGB CONC 32.6 g/dl (32.0-36.5); MEAN CORPUSCULAR VOLUME 91.8 fl (80.0-96.0); PLATELET COUNT, AUTOMATED 183 10^3/uL (150-450); RED BLOOD COUNT 3.67 10^6/uL (4.30-6.10); WHITE BLOOD COUNT 5.9 10^3/uL (4.0-10.0)
[2023-11-02 07:05] LABS: ALBUMIN 2.6 G/DL (3.2-5.2); ALKALINE PHOSPHATASE 54 U/L (46-116); ALT/SGPT 17 U/L (7.0-40); AST/SGOT 18 U/L (<34); BILIRUBIN,TOTAL 0.5 MG/DL (0.3-1.2); BLOOD UREA NITROGEN 13 MG/DL (9-23); CALCIUM LEVEL 8.5 MG/DL (8.3-10.6); CARBON DIOXIDE LEVEL 31 MMOL/L (20-31); CHLORIDE LEVEL 107 MMOL/L (98-107); CREATININE FOR GFR 0.63 MG/DL (0.70-1.30); GLOMERULAR FILTRATION RATE > 60.0 (>42); GLUCOSE, FASTING 124 MG/DL (74-106); MAGNESIUM LEVEL 1.6 MG/DL (1.8-2.4); POTASSIUM SERUM 3.8 MMOL/L (3.5-5.1); SODIUM LEVEL 144 MMOL/L (136-145); TOTAL PROTEIN 5.3 G/DL (5.7-8.2)
[2023-11-02] MEDS: MAGNESIUM OXIDE 400MG TAB (MAG-OX) PO SCH (09:15)
[2023-11-02] MEDS: MAG SULF 1GM/100ML (MAG RUN) 1 GM in IV 1 EA IV ONE (09:16)
[2023-11-02 12:00] VITALS: BP 144/65; TEMP 97.5; O2SAT 98
[2023-11-02 20:00] VITALS: BP 105/56; TEMP 98.1; O2SAT 95
[2023-11-03 04:00] VITALS: BP 107/56; TEMP 97.5; O2SAT 98
[2023-11-03] MEDS ORDERED: RISATAB3 PO (08:40)
[2023-11-03] MEDS ORDERED: MAGN400T2 PO (08:40)
== END 2023-11-03 10:32 | DRG 394 ==
LOC: M ED 12:07 → EDBD 12:07 → M ED INP 15:22 → M MSPAV 17:48
PROVIDERS: ADMIT Internal Medicine; ATTEND Internal Medicine Nephrology
DX: K52.1 Toxic gastroenteritis and colitis (principal); N39.0 Urinary tract infection, site not specified; N13.30 Unspecified hydronephrosis; F02.82 Dementia in other diseases classified elsewhere, unspecified severity, with psychotic disturbance; E11.40 Type 2 diabetes mellitus with diabetic neuropathy, unspecified; E78.5 Hyperlipidemia, unspecified; I10 Essential (primary) hypertension; G40.909 Epilepsy, unspecified, not intractable, without status epilepticus; K59.00 Constipation, unspecified; E83.42 Hypomagnesemia; I48.91 Unspecified atrial fibrillation; E11.65 Type 2 diabetes mellitus with hyperglycemia; G20.A1 Parkinson's disease without dyskinesia, without mention of fluctuations; R53.1 Weakness; N40.1 Benign prostatic hyperplasia with lower urinary tract symptoms; I49.8 Other specified cardiac arrhythmias; N31.9 Neuromuscular dysfunction of bladder, unspecified; G31.83 Neurocognitive disorder with Lewy bodies; R33.9 Retention of urine, unspecified; T36.95XA Adverse effect of unspecified systemic antibiotic, initial encounter; T50.905A Adverse effect of unspecified drugs, medicaments and biological substances, initial encounter; B35.3 Tinea pedis; Z79.82 Long term (current) use of aspirin; Z79.84 Long term (current) use of oral hypoglycemic drugs; Z79.899 Other long term (current) drug therapy; Z88.8 Allergy status to other drugs, medicaments and biological substances

== ENCOUNTER 2023-11-24 10:27 | Emergency (ER) | payer MEDICARE, OTHER ==
[~2023-11-24] VITALS: Ht 170.2 cm; Wt 62.7 kg
[~2023-11-24 10:27] MED LIST changes: +RISATAB3 PO
[2023-11-24] MEDS: NS 500 ML IV ONE ×2 (11:21→12:54)
[2023-11-24] MEDS ORDERED: MAGN400T35 PO (11:28)
[2023-11-24] MEDS ORDERED: RISATAB3 PO (11:28)
[2023-11-24] MEDS ORDERED: HOME MED LIST COMPLETE! XX SCH (11:30)
[2023-11-24 11:46] LABS: BASO % 0.2 % (0.0-1.0); EOS # 0.1 10^3/uL (0.0-0.5); EOS % 1.3 % (0.0-3.0); HEMATOCRIT 36.6 % (42.0-52.0); HEMOGLOBIN 12.3 g/dl (13.5-17.5); LYMPH # 0.8 10^3/uL (1.5-5.0); LYMPH % 7.3 % (24.0-44.0); MEAN CORPUSCULAR HEMOGLOBIN 30.4 pg (27.0-33.0); MEAN CORPUSCULAR HGB CONC 33.6 g/dl (32.0-36.5); MEAN CORPUSCULAR VOLUME 90.4 fl (80.0-96.0); MONO # 0.9 10^3/uL (0.0-0.8); MONO % 8.6 % (2.0-8.0); NEUTROPHILS # 8.6 10^3/uL (1.5-8.5); NEUTROPHILS % 82.2 % (36.0-66.0); PLATELET COUNT, AUTOMATED 154 10^3/uL (150-450); RED BLOOD COUNT 4.05 10^6/uL (4.30-6.10); WHITE BLOOD COUNT 10.5 10^3/uL (4.0-10.0)
[2023-11-24 12:09] LABS: LIPASE 40 U/L (12-53)
[2023-11-24 12:45] LABS: ALBUMIN 3.3 G/DL (3.2-5.2); ALKALINE PHOSPHATASE 71 U/L (46-116); ALT/SGPT 15 U/L (7.0-40); AST/SGOT 13 U/L (<34); BILIRUBIN,DIRECT 0.3 MG/DL (<0.4); BILIRUBIN,TOTAL 0.8 MG/DL (0.3-1.2); BLOOD UREA NITROGEN 24 MG/DL (9-23); CALCIUM LEVEL 8.9 MG/DL (8.3-10.6); CARBON DIOXIDE LEVEL 28 MMOL/L (20-31); CHLORIDE LEVEL 103 MMOL/L (98-107); CREATININE FOR GFR 0.73 MG/DL (0.70-1.30); GLOMERULAR FILTRATION RATE > 60.0 (>42); GLUCOSE, FASTING 139 MG/DL (74-106); MAGNESIUM LEVEL 1.6 MG/DL (1.8-2.4); POTASSIUM SERUM 4.2 MMOL/L (3.5-5.1); SODIUM LEVEL 138 MMOL/L (136-145); TOTAL PROTEIN 6.4 G/DL (5.7-8.2)
[2023-11-24] MEDS: MAG SULF 1GM/100ML (MAG RUN) 1 GM in IV 1 EA IV ONE (13:05)
[2023-11-24 15:50] VITALS: BP 119/64; TEMP 97.4; O2SAT 98
== END 2023-11-24 16:00 | disposition home or self-care (01) ==
LOC: EDBD 10:27 → M ED 10:27
DX: E86.0 Dehydration (principal); E83.42 Hypomagnesemia; E11.9 Type 2 diabetes mellitus without complications; I10 Essential (primary) hypertension; E78.5 Hyperlipidemia, unspecified; R56.9 Unspecified convulsions; G20.C Parkinsonism, unspecified; Z79.82 Long term (current) use of aspirin; Z79.84 Long term (current) use of oral hypoglycemic drugs; Z79.899 Other long term (current) drug therapy; Z88.8 Allergy status to other drugs, medicaments and biological substances
CPT/HCPCS: 80048; 80076; 80177; 83605; 83690; 83735; 85025; 87040; 87486; 87581; 87633; 87798; 93005; 96361; 96365; 96366; 99285; J3475

== ENCOUNTER → 2023-12-11 | Outpatient (REF) | payer MEDICARE, OTHER ==
[~2023-12-11] MED LIST changes: +MAGN400T35 PO
== END ==
LOC: M LAB REF 05:55
PROVIDERS: ATTEND Family Medicine
DX: R53.81 Other malaise (principal)

== ENCOUNTER 2023-12-29 10:43 | Emergency (ER) | payer MEDICARE, OTHER ==
[~2023-12-29] VITALS: Ht 170.2 cm; Wt 66.0 kg
[~2023-12-29 10:43] MED LIST changes: +GABA-1172 PO; -GABA-282 PO
[2023-12-29 10:56] VITALS: BP 130/60; TEMP 96.9
[2023-12-29 13:03] LABS: HEMATOCRIT 37.8 % (42.0-52.0); HEMOGLOBIN 12.4 g/dl (13.5-17.5); MEAN CORPUSCULAR HEMOGLOBIN 30.3 pg (27.0-33.0); MEAN CORPUSCULAR HGB CONC 32.8 g/dl (32.0-36.5); MEAN CORPUSCULAR VOLUME 92.4 fl (80.0-96.0); PLATELET COUNT, AUTOMATED 187 10^3/uL (150-450); RED BLOOD COUNT 4.09 10^6/uL (4.30-6.10); WHITE BLOOD COUNT 7.6 10^3/uL (4.0-10.0)
[2023-12-29 13:26] LABS: BLOOD UREA NITROGEN 18 MG/DL (9-23); CALCIUM LEVEL 9.9 MG/DL (8.3-10.6); CARBON DIOXIDE LEVEL 28 MMOL/L (20-31); CHLORIDE LEVEL 102 MMOL/L (98-107); CREATININE FOR GFR 0.56 MG/DL (0.70-1.30); GLOMERULAR FILTRATION RATE > 60.0 (>42); GLUCOSE, FASTING 257 MG/DL (74-106); POTASSIUM SERUM 4.8 MMOL/L (3.5-5.1); SODIUM LEVEL 139 MMOL/L (136-145)
[2023-12-29] MEDS ORDERED: MEMA1TAB3 PO (13:34)
[2023-12-29] MEDS ORDERED: LACT237L59 PO (13:36)
[2023-12-29] MEDS ORDERED: MED REC COMMENT (13:41)
[2023-12-29] MEDS ORDERED: HOME MED LIST COMPLETE! XX SCH ×2 (13:45)
[2023-12-29 16:13] VITALS: O2SAT 98
== END 2023-12-29 16:22 | disposition home or self-care (01) ==
LOC: M ED 10:43 → EDBD 10:43 → M ED 16:22
DX: Z46.6 Encounter for fitting and adjustment of urinary device (principal); L89.320 Pressure ulcer of left buttock, unstageable; G40.909 Epilepsy, unspecified, not intractable, without status epilepticus; E11.9 Type 2 diabetes mellitus without complications; I10 Essential (primary) hypertension; E78.5 Hyperlipidemia, unspecified; Z88.8 Allergy status to other drugs, medicaments and biological substances; Z79.82 Long term (current) use of aspirin; Z79.02 Long term (current) use of antithrombotics/antiplatelets; Z79.4 Long term (current) use of insulin; Z79.899 Other long term (current) drug therapy

== ENCOUNTER 2024-01-08 09:27 | Emergency (ER) | payer MEDICARE, OTHER ==
[~2024-01-08] VITALS: Ht 170.2 cm; Wt 65.9 kg
[~2024-01-08 09:27] MED LIST changes: +LACT237L59 PO; +MED REC COMMENT; +MEMA1TAB3 PO
[2024-01-08 14:06] VITALS: BP 150/80; TEMP 96.8; O2SAT 99
[2024-01-09] MEDS ORDERED: CEFD300C PO (09:59)
== END 2024-01-08 14:11 | disposition home or self-care (01) ==
LOC: EDBD 09:27 → M ED 09:27
DX: T83.098A Other mechanical complication of other urinary catheter, initial encounter (principal); L89.322 Pressure ulcer of left buttock, stage 2; Z79.82 Long term (current) use of aspirin; Z79.899 Other long term (current) drug therapy; Z88.8 Allergy status to other drugs, medicaments and biological substances

== ENCOUNTER 2024-01-09 07:38 | Emergency (ER) | payer MEDICARE, OTHER ==
[~2024-01-09] VITALS: Ht 170.2 cm; Wt 65.9 kg
[2024-01-09 08:29] LABS: BASO % 0.4 % (0.0-1.0); EOS # 0.3 10^3/uL (0.0-0.5); EOS % 3.6 % (0.0-3.0); HEMATOCRIT 37.8 % (42.0-52.0); HEMOGLOBIN 12.5 g/dl (13.5-17.5); LYMPH # 0.9 10^3/uL (1.5-5.0); LYMPH % 12.3 % (24.0-44.0); MEAN CORPUSCULAR HEMOGLOBIN 30.1 pg (27.0-33.0); MEAN CORPUSCULAR HGB CONC 33.1 g/dl (32.0-36.5); MEAN CORPUSCULAR VOLUME 91.1 fl (80.0-96.0); MONO # 0.8 10^3/uL (0.0-0.8); MONO % 10.1 % (2.0-8.0); NEUTROPHILS # 5.5 10^3/uL (1.5-8.5); NEUTROPHILS % 73.5 % (36.0-66.0); PLATELET COUNT, AUTOMATED 162 10^3/uL (150-450); RED BLOOD COUNT 4.15 10^6/uL (4.30-6.10); WHITE BLOOD COUNT 7.5 10^3/uL (4.0-10.0)
[2024-01-09 09:00] LABS: BLOOD UREA NITROGEN 14 MG/DL (9-23); CALCIUM LEVEL 9.5 MG/DL (8.3-10.6); CARBON DIOXIDE LEVEL 31 MMOL/L (20-31); CHLORIDE LEVEL 104 MMOL/L (98-107); CREATININE FOR GFR 0.58 MG/DL (0.70-1.30); GLOMERULAR FILTRATION RATE > 60.0 (>42); GLUCOSE, FASTING 246 MG/DL (74-106); POTASSIUM SERUM 4.3 MMOL/L (3.5-5.1); SODIUM LEVEL 138 MMOL/L (136-145)
[2024-01-09 09:08] LABS: PROCALCITONIN 0.07 ng/ml
[2024-01-09] MEDS ORDERED: CEFD300C PO (09:59)
[2024-01-09] MEDS: CEFDINIR 300 MG CAP (OMNICEF) PO ONE (10:15)
[2024-01-09 10:30] VITALS: BP 131/75; TEMP 97; O2SAT 97
== END 2024-01-09 11:03 | disposition home or self-care (01) ==
LOC: EDBD 07:38 → M ED 07:38
DX: N39.0 Urinary tract infection, site not specified (principal); T83.098A Other mechanical complication of other urinary catheter, initial encounter; E11.9 Type 2 diabetes mellitus without complications; I10 Essential (primary) hypertension; G40.909 Epilepsy, unspecified, not intractable, without status epilepticus; F03.90 Unspecified dementia, unspecified severity, without behavioral disturbance, psychotic disturbance, mood disturbance, and anxiety; Z86.69 Personal history of other diseases of the nervous system and sense organs; Z79.82 Long term (current) use of aspirin; Z79.899 Other long term (current) drug therapy; Z88.8 Allergy status to other drugs, medicaments and biological substances

== ENCOUNTER → 2024-02-02 | Outpatient (REF) ==
[~2024-02-02] MED LIST changes: +ATOR-398 PO; +CEFD300C PO; -LIPI80TA PO; +NYST1POW3 TOP; -NYST1POW9 TOP
[2024-02-02 09:01] LABS: HEMOGLOBIN 11.7 g/dl (13.5-17.5); MEAN CORPUSCULAR HEMOGLOBIN 29.3 pg (27.0-33.0); MEAN CORPUSCULAR HGB CONC 32.5 g/dl (32.0-36.5); PLATELET COUNT, AUTOMATED 179 10^3/uL (150-450); WHITE BLOOD COUNT 6.1 10^3/uL (4.0-10.0)
[2024-02-02 09:44] LABS: BLOOD UREA NITROGEN 15 MG/DL (9-23); CALCIUM LEVEL 9.3 MG/DL (8.3-10.6); CARBON DIOXIDE LEVEL 32 MMOL/L (20-31); CHLORIDE LEVEL 103 MMOL/L (98-107); CREATININE FOR GFR 0.56 MG/DL (0.70-1.30); GLOMERULAR FILTRATION RATE > 60.0 (>42); GLUCOSE, FASTING 151 MG/DL (74-106); POTASSIUM SERUM 4.4 MMOL/L (3.5-5.1); SODIUM LEVEL 140 MMOL/L (136-145)
== END ==
PROVIDERS: ATTEND Internal Medicine
DX: G20.C Parkinsonism, unspecified (principal)

== ENCOUNTER → 2024-02-09 | Outpatient (REF) ==
[2024-02-09 11:22] LABS: HEMATOCRIT 39.4 % (42.0-52.0); HEMOGLOBIN 12.7 g/dl (13.5-17.5); MEAN CORPUSCULAR HEMOGLOBIN 28.9 pg (27.0-33.0); MEAN CORPUSCULAR HGB CONC 32.2 g/dl (32.0-36.5); MEAN CORPUSCULAR VOLUME 89.7 fl (80.0-96.0); PLATELET COUNT, AUTOMATED 148 10^3/uL (150-450); RED BLOOD COUNT 4.39 10^6/uL (4.30-6.10); WHITE BLOOD COUNT 6.4 10^3/uL (4.0-10.0)
[2024-02-09 11:59] LABS: BLOOD UREA NITROGEN 19 MG/DL (9-23); CALCIUM LEVEL 9.9 MG/DL (8.3-10.6); CARBON DIOXIDE LEVEL 30 MMOL/L (20-31); CHLORIDE LEVEL 100 MMOL/L (98-107); CREATININE FOR GFR 0.65 MG/DL (0.70-1.30); GLOMERULAR FILTRATION RATE > 60.0 (>42); GLUCOSE, FASTING 153 MG/DL (74-106); POTASSIUM SERUM 4.7 MMOL/L (3.5-5.1); SODIUM LEVEL 138 MMOL/L (136-145)
== END ==
PROVIDERS: ATTEND Internal Medicine
DX: G20.C Parkinsonism, unspecified (principal)

== ENCOUNTER → 2024-02-23 | Outpatient (REF) ==
[2024-02-23 10:03] LABS: HEMATOCRIT 41.7 % (42.0-52.0); MEAN CORPUSCULAR HEMOGLOBIN 28.9 pg (27.0-33.0); MEAN CORPUSCULAR HGB CONC 31.2 g/dl (32.0-36.5); MEAN CORPUSCULAR VOLUME 92.7 fl (80.0-96.0); PLATELET COUNT, AUTOMATED 139 10^3/uL (150-450); WHITE BLOOD COUNT 5.5 10^3/uL (4.0-10.0)
[2024-02-23 10:16] LABS: BLOOD UREA NITROGEN 20 MG/DL (9-23); CALCIUM LEVEL 9.9 MG/DL (8.3-10.6); CARBON DIOXIDE LEVEL 32 MMOL/L (20-31); CHLORIDE LEVEL 103 MMOL/L (98-107); GLOMERULAR FILTRATION RATE > 60.0 (>42); GLUCOSE, FASTING 172 MG/DL (74-106); POTASSIUM SERUM 4.2 MMOL/L (3.5-5.1); SODIUM LEVEL 140 MMOL/L (136-145)
== END ==
PROVIDERS: ATTEND Internal Medicine
DX: G20.C Parkinsonism, unspecified (principal)

== ENCOUNTER → 2024-03-29 | Outpatient (REF) | payer MEDICARE, OTHER ==
[2024-03-29 10:35] LABS: HEMATOCRIT 36.2 % (42.0-52.0); HEMOGLOBIN 11.7 g/dl (13.5-17.5); MEAN CORPUSCULAR HEMOGLOBIN 29.5 pg (27.0-33.0); MEAN CORPUSCULAR HGB CONC 32.3 g/dl (32.0-36.5); MEAN CORPUSCULAR VOLUME 91.2 fl (80.0-96.0); PLATELET COUNT, AUTOMATED 118 10^3/uL (150-450); RED BLOOD COUNT 3.97 10^6/uL (4.30-6.10); WHITE BLOOD COUNT 4.7 10^3/uL (4.0-10.0)
[2024-03-29 11:01] LABS: BLOOD UREA NITROGEN 23 MG/DL (9-23); CALCIUM LEVEL 9.6 MG/DL (8.3-10.6); CARBON DIOXIDE LEVEL 30 MMOL/L (20-31); CHLORIDE LEVEL 102 MMOL/L (98-107); CREATININE FOR GFR 0.59 MG/DL (0.70-1.30); GLOMERULAR FILTRATION RATE > 60.0 (>42); GLUCOSE, FASTING 184 MG/DL (74-106); POTASSIUM SERUM 4.5 MMOL/L (3.5-5.1); SODIUM LEVEL 141 MMOL/L (136-145)
== END ==
PROVIDERS: ATTEND Internal Medicine
DX: E11.9 Type 2 diabetes mellitus without complications (principal)

== ENCOUNTER → 2024-05-24 | Outpatient (REF) | payer MEDICARE, OTHER ==
[2024-05-24 17:55] LABS: HEMATOCRIT 38.8 % (42.0-52.0); HEMOGLOBIN 12.6 g/dl (13.5-17.5); MEAN CORPUSCULAR HEMOGLOBIN 29.9 pg (27.0-33.0); MEAN CORPUSCULAR HGB CONC 32.5 g/dl (32.0-36.5); MEAN CORPUSCULAR VOLUME 91.9 fl (80.0-96.0); PLATELET COUNT, AUTOMATED 154 10^3/uL (150-450); RED BLOOD COUNT 4.22 10^6/uL (4.30-6.10); WHITE BLOOD COUNT 6.2 10^3/uL (4.0-10.0)
[2024-05-24 18:30] LABS: BLOOD UREA NITROGEN 29 MG/DL (9-23); CALCIUM LEVEL 9.6 MG/DL (8.3-10.6); CARBON DIOXIDE LEVEL 30 MMOL/L (20-31); CHLORIDE LEVEL 101 MMOL/L (98-107); CREATININE FOR GFR 0.73 MG/DL (0.70-1.30); GLOMERULAR FILTRATION RATE > 60.0 (>42); GLUCOSE, FASTING 187 MG/DL (74-106); MAGNESIUM LEVEL 2.1 MG/DL (1.8-2.4); POTASSIUM SERUM 4.9 MMOL/L (3.5-5.1); SODIUM LEVEL 142 MMOL/L (136-145)
[2024-05-24 18:31] LABS: THYROXINE (T4) 9.2 UG/DL (4.5-10.9); TOTAL T3 119.2 NG/DL (60.0-181.0)
[2024-05-24 18:32] LABS: TOTAL 25(OH) VITAMIN D 41.8 NG/ML (20.0-100.0); VITAMIN B12 LEVEL 473 PG/ML (211-911)
== END ==
PROVIDERS: ATTEND Internal Medicine
DX: F41.9 Anxiety disorder, unspecified (principal); Z79.899 Other long term (current) drug therapy

== ENCOUNTER → 2024-05-25 | Outpatient (REF) | payer MEDICARE, OTHER | PROVIDERS: ATTEND Physician Assistant | DX: G40.909 Epilepsy, unspecified, not intractable, without status epilepticus (principal); Z79.899 Other long term (current) drug therapy ==

== ENCOUNTER → 2024-06-01 | Outpatient (REF) | payer MEDICARE, OTHER ==
[2024-06-01 19:09] LABS: HEMATOCRIT 37.8 % (42.0-52.0); HEMOGLOBIN 12.7 g/dl (13.5-17.5); MEAN CORPUSCULAR HEMOGLOBIN 30.5 pg (27.0-33.0); MEAN CORPUSCULAR HGB CONC 33.6 g/dl (32.0-36.5); MEAN CORPUSCULAR VOLUME 90.6 fl (80.0-96.0); PLATELET COUNT, AUTOMATED 122 10^3/uL (150-450); RED BLOOD COUNT 4.17 10^6/uL (4.30-6.10); WHITE BLOOD COUNT 6.8 10^3/uL (4.0-10.0)
[2024-06-01 19:32] LABS: HEMOGLOBIN A1c 6.7 % (4.0-6.0)
[2024-06-01 19:41] LABS: BLOOD UREA NITROGEN 20 MG/DL (9-23); CALCIUM LEVEL 9.2 MG/DL (8.3-10.6); CARBON DIOXIDE LEVEL 28 MMOL/L (20-31); CHLORIDE LEVEL 102 MMOL/L (98-107); CREATININE FOR GFR 0.69 MG/DL (0.70-1.30); GLOMERULAR FILTRATION RATE > 60.0 (>42); GLUCOSE, FASTING 278 MG/DL (74-106); MAGNESIUM LEVEL 1.9 MG/DL (1.8-2.4); POTASSIUM SERUM 5.3 MMOL/L (3.5-5.1); SODIUM LEVEL 142 MMOL/L (136-145)
== END ==
PROVIDERS: ATTEND Physician Assistant
DX: E11.9 Type 2 diabetes mellitus without complications (principal)

== ENCOUNTER → 2024-06-07 | Outpatient (REF) | payer MEDICARE, OTHER ==
[2024-06-07 08:53] LABS: MEAN CORPUSCULAR HEMOGLOBIN 29.4 pg (27.0-33.0); MEAN CORPUSCULAR HGB CONC 32.5 g/dl (32.0-36.5); MEAN CORPUSCULAR VOLUME 90.5 fl (80.0-96.0); PLATELET COUNT, AUTOMATED 148 10^3/uL (150-450); RED BLOOD COUNT 4.42 10^6/uL (4.30-6.10); WHITE BLOOD COUNT 5.2 10^3/uL (4.0-10.0)
[2024-06-07 09:20] LABS: HEMOGLOBIN A1c 6.8 % (4.0-6.0)
[2024-06-07 09:23] LABS: BLOOD UREA NITROGEN 19 MG/DL (9-23); CALCIUM LEVEL 9.2 MG/DL (8.3-10.6); CARBON DIOXIDE LEVEL 32 MMOL/L (20-31); CHLORIDE LEVEL 102 MMOL/L (98-107); GLOMERULAR FILTRATION RATE > 60.0 (>42); GLUCOSE, FASTING 167 MG/DL (74-106); MAGNESIUM LEVEL 1.8 MG/DL (1.8-2.4); POTASSIUM SERUM 4.5 MMOL/L (3.5-5.1); SODIUM LEVEL 142 MMOL/L (136-145)
== END ==
PROVIDERS: ATTEND Physician Assistant
DX: E11.9 Type 2 diabetes mellitus without complications (principal)

== ENCOUNTER → 2024-06-28 | Outpatient (REF) | payer MEDICARE, OTHER ==
[2024-06-28 07:46] LABS: HEMATOCRIT 40.9 % (42.0-52.0); HEMOGLOBIN 12.8 g/dl (13.5-17.5); MEAN CORPUSCULAR HGB CONC 31.3 g/dl (32.0-36.5); PLATELET COUNT, AUTOMATED 113 10^3/uL (150-450); RED BLOOD COUNT 4.26 10^6/uL (4.30-6.10); WHITE BLOOD COUNT 6.1 10^3/uL (4.0-10.0)
== END ==
PROVIDERS: ATTEND Internal Medicine
DX: E11.9 Type 2 diabetes mellitus without complications (principal)

== ENCOUNTER → 2024-07-26 | Outpatient (REF) | payer MEDICARE, OTHER ==
[~2024-07-26] MED LIST changes: -FLOM0.4C39 PO; +TAMS-18 PO
== END ==
PROVIDERS: ATTEND Internal Medicine
DX: E11.9 Type 2 diabetes mellitus without complications (principal)

== ENCOUNTER → 2024-09-27 | Outpatient (REF) | payer MEDICARE, OTHER ==
[~2024-09-27] MED LIST changes: +ACET-907 PO; +ASPI-1 PO; +BAYE325T13 PO; +BISA10SU27 PR; +FLEEENE12 PR; +KEPP250T5 PO; +LEVE250T5 PO; +MILKSUS3 PO; +SENN-225 PO; -SENO8.6T5 PO; +SITA50TAB PO
[2024-09-27 09:14] LABS: PLATELET COUNT, AUTOMATED 116 10^3/uL (150-450)
[2024-09-27 09:20] LABS: ESTIMATED AVERAGE GLUCOSE 180.0 MG/DL (60-110)
[2024-09-27 09:37] LABS: CALCIUM LEVEL 9.3 MG/DL (8.3-10.6); CARBON DIOXIDE LEVEL 32 MMOL/L (20-31); CHLORIDE LEVEL 101 MMOL/L (98-107); CREATININE FOR GFR 0.79 MG/DL (0.70-1.30); GLOMERULAR FILTRATION RATE > 90.0 (>42); POTASSIUM SERUM 5.0 MMOL/L (3.5-5.1); SODIUM LEVEL 141 MMOL/L (136-145)
[2024-09-27 19:46] LABS: PLATELET COUNT, AUTOMATED 101 10^3/uL (150-450)
[2024-09-27 20:20] LABS: CALCIUM LEVEL 9.4 MG/DL (8.3-10.6); CARBON DIOXIDE LEVEL 30 MMOL/L (20-31); CHLORIDE LEVEL 104 MMOL/L (98-107); CREATININE FOR GFR 0.71 MG/DL (0.70-1.30); GLOMERULAR FILTRATION RATE > 90.0 (>42); MAGNESIUM LEVEL 2.0 MG/DL (1.8-2.4); POTASSIUM SERUM 4.8 MMOL/L (3.5-5.1); SODIUM LEVEL 144 MMOL/L (136-145)
== END ==
PROVIDERS: ATTEND Internal Medicine
DX: E11.9 Type 2 diabetes mellitus without complications (principal)

== ENCOUNTER 2024-09-29 18:27 | Emergency (ER) | payer MEDICARE, OTHER ==
[~2024-09-29] VITALS: Ht 170.2 cm; Wt 72.7 kg
[~2024-09-29 18:27] MED LIST changes: -ACET-907 PO; -ASPI-1 PO; -BAYE325T13 PO; -BISA10SU27 PR; -FLEEENE12 PR; -KEPP250T5 PO; -LEVE250T5 PO; -MILKSUS3 PO; -SENN-225 PO; +SENO8.6T5 PO; -SITA50TAB PO
[2024-09-29] MEDS ORDERED: ISOVUE-370 76% 100 ML VIAL As Ordered ONE (18:45)
[2024-09-29 19:06] VITALS: BP 131/64; TEMP 97.5; O2SAT 98
[2024-09-29 19:06] LABS: BASO # 0.0 10^3/uL (0.0-0.2); BASO % 0.6 % (0.0-1.0); EOS # 0.4 10^3/uL (0.0-0.5); EOS % 7.6 % (0.0-3.0); LYMPH # 1.2 10^3/uL (1.5-5.0); LYMPH % 24.5 % (24.0-44.0); MONO # 0.7 10^3/uL (0.0-0.8); MONO % 13.9 % (2.0-8.0); NEUTROPHILS # 2.6 10^3/uL (1.5-8.5); NEUTROPHILS % 53.2 % (36.0-66.0); PLATELET COUNT, AUTOMATED 109 10^3/uL (150-450)
[2024-09-29 19:29] LABS: INR 1.1
[2024-09-29 19:45] LABS: CALCIUM LEVEL 8.6 MG/DL (8.3-10.6); CARBON DIOXIDE LEVEL 29 MMOL/L (20-31); CHLORIDE LEVEL 105 MMOL/L (98-107); CK-MB VALUE MASS 1.3 NG/ML (<3.6); CREATININE FOR GFR 0.79 MG/DL (0.70-1.30); GLOMERULAR FILTRATION RATE > 90.0 (>42); POTASSIUM SERUM 4.5 MMOL/L (3.5-5.1); SODIUM LEVEL 143 MMOL/L (136-145)
[2024-09-29 19:50] LABS: CPK CREATINE PHOSPHOKINASE 44 U/L (46-171); MB/CK RELATIVE INDEX 2.95 (< OR =4)
[2024-09-29 21:06] LABS: MAGNESIUM LEVEL 2.0 MG/DL (1.8-2.4)
[2024-09-30 03:26] LABS: KETONE, URINE AUTO RFX NEGATIVE (NEGATIVE); LEUKOCYTE ESTERASE UR AUTO RFX TRACE (NEGATIVE); NITRITE, URINE AUTO RFX NEGATIVE (NEGATIVE); RBC, URINE AUTO RFX 1 /HPF (0-3); WBC, URINE AUTO RFX 2 /HPF (0-3)
[2024-09-30 03:27] LABS: SQUAM EPITHELIAL CELL UR AURFX 0 /HPF (0-6)
[2024-09-30] MEDS ORDERED: KEPP250T5 PO (04:26)
[2024-09-30] MEDS ORDERED: BAYE325T13 PO (04:26)
[2024-09-30] MEDS ORDERED: KEPP10002 PO (04:26)
[2024-09-30 05:08] VITALS: BP 150/66; TEMP 97.5; O2SAT 98
== END 2024-09-30 05:24 | disposition home or self-care (01) ==
LOC: M ED 18:27
DX: R40.4 Transient alteration of awareness (principal); I49.3 Ventricular premature depolarization; I48.91 Unspecified atrial fibrillation; F03.90 Unspecified dementia, unspecified severity, without behavioral disturbance, psychotic disturbance, mood disturbance, and anxiety; Z88.8 Allergy status to other drugs, medicaments and biological substances; Z79.1 Long term (current) use of non-steroidal anti-inflammatories (NSAID); Z79.2 Long term (current) use of antibiotics; Z79.84 Long term (current) use of oral hypoglycemic drugs; Z79.899 Other long term (current) drug therapy
CPT/HCPCS: 36415; 70450; 70496; 70498; 71045; 72190; 80047; 80048; 81001; 82550; 82553; 83735; 84443; 84484; 85025; 85610; 85730; 87088; 87186; 93005; 93041; 94760; 99285; Q9967

== ENCOUNTER 2024-10-10 15:28 | Observation (INO) | payer MEDICARE, OTHER, MEDICAID ==
[~2024-10-10] VITALS: Ht 170.2 cm; Wt 73.2 kg
[2024-10-10] MEDS: INSULIN LISPRO (NovoLOG) PER UNIT SC SCH (00:43)
[~2024-10-10 15:28] MED LIST changes: +BAYE325T13 PO; +KEPP250T5 PO; +SENN-225 PO; -SENO8.6T5 PO
[2024-10-10 16:14] LABS: BASO # 0.0 10^3/uL (0.0-0.2); BASO % 0.3 % (0.0-1.0); EOS # 0.3 10^3/uL (0.0-0.5); EOS % 5.2 % (0.0-3.0); LYMPH # 1.2 10^3/uL (1.5-5.0); LYMPH % 20.6 % (24.0-44.0); MONO # 0.5 10^3/uL (0.0-0.8); MONO % 8.5 % (2.0-8.0); NEUTROPHILS # 3.7 10^3/uL (1.5-8.5); NEUTROPHILS % 65.1 % (36.0-66.0); PLATELET COUNT, AUTOMATED 136 10^3/uL (150-450)
[2024-10-10 17:32] LABS: CALCIUM LEVEL 8.5 MG/DL (8.3-10.6); CARBON DIOXIDE LEVEL 28 MMOL/L (20-31); CHLORIDE LEVEL 103 MMOL/L (98-107); CK-MB VALUE MASS 2.1 NG/ML (<3.6); CPK CREATINE PHOSPHOKINASE 70 U/L (46-171); CREATININE FOR GFR 0.65 MG/DL (0.70-1.30); GLOMERULAR FILTRATION RATE > 90.0 (>42); MB/CK RELATIVE INDEX 3.00 (< OR =4); POTASSIUM SERUM 5.9 MMOL/L (3.5-5.1); SODIUM LEVEL 142 MMOL/L (136-145)
[2024-10-10] MEDS ORDERED: ACET-907 PO (19:21)
[2024-10-10] MEDS ORDERED: ASPI-1 PO (19:21)
[2024-10-10] MEDS ORDERED: LEVE250T5 PO (19:21)
[2024-10-10] MEDS ORDERED: FLEEENE12 PR (19:21)
[2024-10-10] MEDS ORDERED: BISA10SU27 PR (19:21)
[2024-10-10] MEDS ORDERED: MILKSUS3 PO (19:21)
[2024-10-10] MEDS ORDERED: SITA50TAB PO (19:21)
[2024-10-10] MEDS ORDERED: HOME MED LIST COMPLETE! XX SCH (19:25)
[2024-10-10] MEDS ORDERED: MOM 30 ML SUSPENSION UDC PO PRN (22:00)
[2024-10-10] MEDS ORDERED: PANTOPRAZOLE 40MG VIAL IV SCH (22:10)
[2024-10-10] MEDS: PANTOPRAZOLE 40MG VIAL IV SCH (22:59)
[2024-10-10] MEDS ORDERED: GLUCAGON INJ 1 MG VIAL SC PRN (23:05)
[2024-10-10] MEDS ORDERED: GLUCOSE 4 GM CHEW PO PRN (23:05)
[2024-10-10] MEDS ORDERED: DEXTROSE 50% 50 ML SYRINGE IV PRN (23:05)
[2024-10-10] MEDS ORDERED: BISACODYL 10 MG SUPP PR PRN (23:10)
[2024-10-11] VITALS (7 sets, daily range): BP systolic 107–160; BP diastolic 55–78; TEMP 97–97.6; O2SAT 96–100
[2024-10-11] MEDS: GABAPENTIN 300 MG CAP PO SCH (01:03)
[2024-10-11 06:35] LABS: BASO # 0.0 10^3/uL (0.0-0.2); BASO % 0.5 % (0.0-1.0); EOS # 0.3 10^3/uL (0.0-0.5); EOS % 5.0 % (0.0-3.0); LYMPH # 1.3 10^3/uL (1.5-5.0); LYMPH % 22.2 % (24.0-44.0); MONO # 0.6 10^3/uL (0.0-0.8); MONO % 9.5 % (2.0-8.0); NEUTROPHILS # 3.8 10^3/uL (1.5-8.5); NEUTROPHILS % 62.6 % (36.0-66.0); PLATELET COUNT, AUTOMATED 134 10^3/uL (150-450)
[2024-10-11 06:56] LABS: ESTIMATED AVERAGE GLUCOSE 183.0 MG/DL (60-110)
[2024-10-11 07:07] LABS: IRON (FE) 92.0 UG/DL (65-175); PERCENT SATURATION 36.8 % (19.7-50.0)
[2024-10-11 07:09] LABS: VITAMIN B12 LEVEL 417.0 PG/ML (211-911)
[2024-10-11 07:13] LABS: CALCIUM LEVEL 8.8 MG/DL (8.3-10.6); CARBON DIOXIDE LEVEL 29 MMOL/L (20-31); CHLORIDE LEVEL 106 MMOL/L (98-107); CREATININE FOR GFR 0.69 MG/DL (0.70-1.30); GLOMERULAR FILTRATION RATE > 90.0 (>42); MAGNESIUM LEVEL 1.8 MG/DL (1.8-2.4); POTASSIUM SERUM 4.2 MMOL/L (3.5-5.1); SODIUM LEVEL 146 MMOL/L (136-145)
[2024-10-11] MEDS: ASPIRIN 325 MG TAB PO SCH (08:38)
[2024-10-11] MEDS: MEMANTINE 5 MG TABLET PO SCH (08:38)
[2024-10-11] MEDS: NS 500 ML IV ONE (08:39)
[2024-10-11] MEDS: ENOXAPARIN 40 MG/0.4 ML SYRINGE (J1650 PER 10MG) SC SCH (08:39)
[2024-10-11] MEDS: INSULIN LISPRO (NovoLOG) PER UNIT SC SCH (08:51)
[2024-10-11] MEDS ORDERED: TAMSULOSIN 0.4 MG CAP PO SCH (18:00)
[2024-10-11] MEDS ORDERED: ATORVASTATIN 20 MG TAB PO SCH (18:00)
== END 2024-10-11 13:14 ==
LOC: M ED 15:28 → EDBD 15:28 → M ED INP 15:29 → M MSPAV 23:47
PROVIDERS: ADMIT Student in an Organized Health Care Education/Training Program; ATTEND Student in an Organized Health Care Education/Training Program
DX: R55 Syncope and collapse (principal); E87.5 Hyperkalemia; D64.9 Anemia, unspecified; M89.8X8 Other specified disorders of bone, other site; E11.40 Type 2 diabetes mellitus with diabetic neuropathy, unspecified; G40.909 Epilepsy, unspecified, not intractable, without status epilepticus; G20.C Parkinsonism, unspecified; E78.5 Hyperlipidemia, unspecified; K59.09 Other constipation; I25.10 Atherosclerotic heart disease of native coronary artery without angina pectoris; I10 Essential (primary) hypertension; R60.0 Localized edema; R53.81 Other malaise; N40.0 Benign prostatic hyperplasia without lower urinary tract symptoms; F32.9 Major depressive disorder, single episode, unspecified; Z86.73 Personal history of transient ischemic attack (TIA), and cerebral infarction without residual deficits; Z82.49 Family history of ischemic heart disease and other diseases of the circulatory system; Z82.0 Family history of epilepsy and other diseases of the nervous system; Z79.899 Other long term (current) drug therapy; Z79.82 Long term (current) use of aspirin; Z79.84 Long term (current) use of oral hypoglycemic drugs
CPT/HCPCS: 36415; 70450; 71045; 72125; 80047; 80048; 82550; 82553; 82607; 82728; 82746; 83036; 83550; 83735; 84443; 84466; 84484; 85025; 85046; 87635; 93005; 93041; 93306; 93970; 94760; 96361; 96372; 96374; 97161; 97165; 99285; G0378; J1650; J1815; J2470

== ENCOUNTER → 2024-10-13 | Outpatient (REF) | payer MEDICARE, OTHER, MEDICAID ==
[~2024-10-13] MED LIST changes: +ACET-907 PO; +ASPI-1 PO; +BISA10SU27 PR; +FLEEENE12 PR; +LEVE250T5 PO; +MILKSUS3 PO; +SITA50TAB PO
[2024-10-13 09:12] LABS: CALCIUM LEVEL 9.1 MG/DL (8.3-10.6); CARBON DIOXIDE LEVEL 28 MMOL/L (20-31); CHLORIDE LEVEL 101 MMOL/L (98-107); CREATININE FOR GFR 0.87 MG/DL (0.70-1.30); GLOMERULAR FILTRATION RATE > 90.0 (>42); POTASSIUM SERUM 4.6 MMOL/L (3.5-5.1); SODIUM LEVEL 142 MMOL/L (136-145)
== END ==
PROVIDERS: ATTEND Physician Assistant
DX: E86.0 Dehydration (principal)

== ENCOUNTER → 2024-10-25 | Outpatient (REF) | payer MEDICARE, OTHER | PROVIDERS: ATTEND Internal Medicine | DX: E11.9 Type 2 diabetes mellitus without complications (principal) ==

== ENCOUNTER → 2024-10-27 | Outpatient (REF) | payer MEDICARE, OTHER ==
[2024-10-27 11:17] LABS: ESTIMATED AVERAGE GLUCOSE 194.0 MG/DL (60-110)
== END ==
PROVIDERS: ATTEND Physician Assistant
DX: D64.9 Anemia, unspecified (principal); E11.9 Type 2 diabetes mellitus without complications

== ENCOUNTER → 2024-10-27 | Outpatient (CLI) | payer MEDICARE, OTHER, MEDICAID | LOC: M RAD 06:41 | PROVIDERS: ATTEND Physician Assistant | DX: M85.88 Other specified disorders of bone density and structure, other site (principal); R56.9 Unspecified convulsions; D64.9 Anemia, unspecified; E11.9 Type 2 diabetes mellitus without complications; M47.812 Spondylosis without myelopathy or radiculopathy, cervical region ==

== ENCOUNTER → 2024-11-29 | Outpatient (REF) | payer MEDICARE, OTHER | PROVIDERS: ATTEND Internal Medicine | DX: R05.9 Cough, unspecified (principal) ==

== ENCOUNTER → 2024-11-29 | Outpatient (REF) | payer MEDICARE, OTHER, MEDICAID ==
[2024-11-29 12:17] LABS: ESTIMATED AVERAGE GLUCOSE 203.0 MG/DL (60-110)
== END ==
PROVIDERS: ATTEND Internal Medicine
DX: G20.A1 Parkinson's disease without dyskinesia, without mention of fluctuations (principal); Z79.899 Other long term (current) drug therapy

== ENCOUNTER → 2024-12-01 | Outpatient (REF) | payer MEDICARE, OTHER ==
[2024-12-01 11:20] LABS: PLATELET COUNT, AUTOMATED 125 10^3/uL (150-450)
[2024-12-01 11:47] LABS: CALCIUM LEVEL 9.0 MG/DL (8.3-10.6); CARBON DIOXIDE LEVEL 30 MMOL/L (20-31); CHLORIDE LEVEL 101 MMOL/L (98-107); CREATININE FOR GFR 0.84 MG/DL (0.70-1.30); GLOMERULAR FILTRATION RATE > 90.0 (>42); POTASSIUM SERUM 4.7 MMOL/L (3.5-5.1); SODIUM LEVEL 142 MMOL/L (136-145)
== END ==
PROVIDERS: ATTEND Physician Assistant
DX: E11.9 Type 2 diabetes mellitus without complications (principal)

== ENCOUNTER → 2024-12-13 | Outpatient (REF) | payer MEDICARE, OTHER ==
[2024-12-13 13:58] LABS: CALCIUM LEVEL 9.1 MG/DL (8.3-10.6); CARBON DIOXIDE LEVEL 32 MMOL/L (20-31); CHLORIDE LEVEL 99 MMOL/L (98-107); CREATININE FOR GFR 0.84 MG/DL (0.70-1.30); GLOMERULAR FILTRATION RATE > 90.0 (>42); POTASSIUM SERUM 4.9 MMOL/L (3.5-5.1); SODIUM LEVEL 139 MMOL/L (136-145)
== END ==
PROVIDERS: ATTEND Physician Assistant
DX: E11.9 Type 2 diabetes mellitus without complications (principal)

== ENCOUNTER → 2024-12-19 | Outpatient (REF) | payer MEDICARE, OTHER ==
[2024-12-19 17:39] LABS: PLATELET COUNT, AUTOMATED 112 10^3/uL (150-450)
[2024-12-19 18:03] LABS: CALCIUM LEVEL 8.7 MG/DL (8.3-10.6); CARBON DIOXIDE LEVEL 28 MMOL/L (20-31); CHLORIDE LEVEL 101 MMOL/L (98-107); CREATININE FOR GFR 0.73 MG/DL (0.70-1.30); GLOMERULAR FILTRATION RATE > 90.0 (>42); POTASSIUM SERUM 4.8 MMOL/L (3.5-5.1); SODIUM LEVEL 139 MMOL/L (136-145)
== END ==
PROVIDERS: ATTEND Physician Assistant
DX: R29.6 Repeated falls (principal)

== ENCOUNTER → 2024-12-27 | Outpatient (REF) | payer MEDICARE, OTHER ==
[2024-12-27 11:52] LABS: PLATELET COUNT, AUTOMATED 117 10^3/uL (150-450)
[2024-12-27 12:25] LABS: CALCIUM LEVEL 9.0 MG/DL (8.3-10.6); CARBON DIOXIDE LEVEL 30 MMOL/L (20-31); CHLORIDE LEVEL 102 MMOL/L (98-107); CREATININE FOR GFR 0.81 MG/DL (0.70-1.30); GLOMERULAR FILTRATION RATE > 90.0 (>42); POTASSIUM SERUM 4.8 MMOL/L (3.5-5.1); SODIUM LEVEL 141 MMOL/L (136-145)
[2024-12-27 12:32] LABS: ESTIMATED AVERAGE GLUCOSE 189.0 MG/DL (60-110)
== END ==
PROVIDERS: ATTEND Internal Medicine
DX: E11.9 Type 2 diabetes mellitus without complications (principal)

== ENCOUNTER → 2025-01-12 | Outpatient (CLI) | payer MEDICARE, OTHER, MEDICAID | LOC: M WHC 07:29 | PROVIDERS: ATTEND Physician Assistant | DX: R60.9 Edema, unspecified (principal) ==

== ENCOUNTER → 2025-01-24 | Outpatient (REF) | payer MEDICARE, OTHER ==
[2025-01-24 12:53] LABS: ESTIMATED AVERAGE GLUCOSE 235.0 MG/DL (60-110)
== END ==
PROVIDERS: ATTEND Internal Medicine
DX: E11.9 Type 2 diabetes mellitus without complications (principal)

== ENCOUNTER → 2025-02-21 | Outpatient (REF) | payer MEDICARE, OTHER ==
[2025-02-21 14:36] LABS: ESTIMATED AVERAGE GLUCOSE 171.0 MG/DL (60-110)
== END ==
PROVIDERS: ATTEND Internal Medicine
DX: I48.91 Unspecified atrial fibrillation (principal); Z79.899 Other long term (current) drug therapy

== ENCOUNTER → 2025-03-19 | Outpatient (REF) | payer MEDICARE, OTHER | PROVIDERS: ATTEND Physician Assistant | DX: R05.9 Cough, unspecified (principal) ==